=== PATIENT | male | born 1975 | race Caucasian/White ===

== ENCOUNTER → 2018-05-08 17:08 | Outpatient (CLI) | payer BC, SELFPAY ==
--- NOTE | 2018-05-08 17:14 | RAD_ITS ---
STUDY: X-RAY - CERVICAL SPINE REASON FOR EXAM: Male, 42 years old. Neck pain. TECHNIQUE: 7 view(s) of the cervical spine were obtained. COMPARISON: None FINDINGS: Normal anterior atlantoaxial articulation. Normal odontoid process. There is reversal of the normal curve, likely positional. Normal vertebral bodies and endplates. There is intervertebral disc space narrowing at C4-5, C5-6 and C6-7 with osteophyte formation most marked at C5-6. There is minimal anterior bony neural foraminal encroachment at C5-6 bilaterally. The soft tissue structures are unremarkable. RAD/Cerv Spine 4 or 5 Views IMPRESSION: Cervical spondylosis as described. Electronically Signed: Sang Up MD at 17:56 EDT , Service support ,
== END ==
PROVIDERS: Family Provider Family Medicine; PCP Family Medicine; Visit Provider Family Medicine
DX: R20.2 Paresthesia of skin (principal); R20.0 Anesthesia of skin
CPT/HCPCS: 72050

== ENCOUNTER → 2020-04-14 | Outpatient (CLI) | payer BC, SELFPAY ==
[2020-04-14 08:25] VITALS: BMI 33.0
== END | disposition home or self-care (01) ==
PROVIDERS: PCP Family Medicine; Visit Provider Physician Assistant Surgical
DX: Z20.828 Contact with and (suspected) exposure to other viral communicable diseases (principal)
CPT/HCPCS: 87635; G2023; U0003

== ENCOUNTER 2020-04-18 11:13 | Emergency (ER) | payer BC, SELFPAY ==
[2020-04-14 08:25] VITALS: BMI 33.0
[2020-04-18 11:14] VITALS: BP 161/106; PULSE 104; RESP 16; TEMP 34.4; O2SAT 95; BMI 36.9
--- NOTE | 2020-04-18 11:35 | ED.VIS.GEN ---
History of Present Illness Chief Complaint: General Illness Informant: Patient Narrative: Patient is a 44-year-old previously healthy male who presents to the emergency department for intermittent fevers, cough, headache. Initial symptoms started 1 week ago with night sweats. He states that he has been taking Tylenol, ibuprofen intermittently for his symptoms. He did go to an outside facility and had a coronavirus test. This was negative. He was also placed on azithromycin which he has 2 more pills to take. He has been having a cough which has been nonproductive. He has pain behind his eyes whenever he coughs. No pain in his forehead or over his cheeks. No sore throat. Does feel fullness in bilateral ears but no pain. He denies any chest pain or shortness of breath. No nausea/vomiting or abdominal pain. He did develop some mild diarrhea over the past 2 days. No urinary symptoms. Has not had a rash. He denies any sore throat. No known sick contacts. Patient is a smoker. Past Medical History - Allergies and Home Meds Allergies/Adverse Reactions: Allergies No Known Allergies Allergy (Unverified 04/14/20 08:25) Primary Care Physician: Meg Mahoney MD [Primary Care Provider] - Prior records reviewed: Yes Past Medical History: None Surgical History: no surgical history Smoking Status: Current every day smoker Drugs: None Review of Systems General: Reports: Chills, Fever. Denies: Sweats Eyes: Denies: Visual changes - bilaterally, Diplopia ENT: Denies: Rhinorrhea, Sore throat Cardiovascular: Denies: Chest pain, Palpitations Respiratory: Reports: Cough. Denies: Dyspnea, Dyspnea on exertion Gastrointestinal: Reports: Diarrhea. Denies: Abdominal pain, Nausea, Vomiting, Melena, Hematochezia Genitourinary: Denies: Dysuria, Hematuria, Frequency Musculoskeletal: Denies: Back pain, Extremity Pain Skin: Denies: Rash, Wounds Neurological: Reports: Headache - Mild. Denies: Weakness, Numbness Physical Exam Vital Signs/Narrative: Vital Signs Temp Pulse Resp BP Pulse Ox 04/18/20 11:14 93.9 F L 104 H 16 161/106 H 95 Inital Vital Signs reviewed: Yes General: Well nourished, Well developed, No Acute Distress Head: Normocephalic, Atraumatic Eyes: Perrl, EOMI ENT: Moist mucous membranes, No rhinorrhea, TM's clear, - - No tenderness with palpation of frontal and maxillary sinuses.. Negative for: Nasal congestion Neck: Supple, Nontender Cardiovascular: Regular rate, Regular rhythm, No murmurs Respiratory: No distress, Chest nontender, - - Mild left lower crackles. Negative for: Diminished Abdomen: Soft, Nontender, Nondistended, Normal bowel sounds Back: Nontender, Normal Inspection Extremities: Nontender, No edema Skin: Normal color, No rash Neurological: Alert, Oriented x3, Cranial nerves II-XII grossly intact, Normal Strength, Normal Sensation Psychological: Normal affect, Normal Mood Diagnostic/Tx/Re-eval Left sided consolidation. - Medical Decision Making Patient presents to the emerge department for intermittent fevers, cough, headache. Upon arrival to the emerge department he is in no acute distress. He had an outpatient coronavirus test which was negative. He is currently on azithromycin. Will obtain chest x-ray at this time. Lab work not show any significant acute abnormality. He did have very mild elevation of his liver enzymes. Lactic acid well within normal limits. We did repeat coronavirus test and is currently pending. X-ray did show a left-sided pneumonia. He is still currently on azithromycin. He is to continue this. We will also place him on Ceftin for broadening coverage. Patient did not have any desaturations while in the emergency department. He is overall well-appearing. I do feel he is a candidate for outpatient management. If he develops any worsening symptoms, shortness of breath or inability keep antibiotics down he is to return to the emergency department immediately. Otherwise he needs to have close follow-up with his PCP. Patient understands and is agreeable this plan. Will discharge home in stable condition. ED Disposition - Plan for ED Patient: Disposition: Home or Assisted Living Diagnosis: Community acquired pneumonia Instructions: Pneumonia Prescriptions: Cefuroxime Axetil [Ceftin] 500 mg PO BID 7 Days #14 tab Transmission Status: Pending to [facility] Referrals: Meg Mahoney MD [Primary Care Provider] - 2 Days
--- NOTE | 2020-04-18 11:40 | RAD_ITS ---
STUDY: X-RAY CHEST REASON FOR EXAM: Male, 44 years old. Fever, general illness x 5 days -- congestion, cough TECHNIQUE: PA and lateral views of the chest. COMPARISON: None. FINDINGS: The lungs are expanded. Right lung is clear, there is a left upper lobe infiltrate without effusion. There is no demonstrated pleural abnormality. Normal size heart. Normal mediastinum and jovana. Normal visualized pulmonary arteries. Normal visualized aortic arch and descending thoracic aorta. Normal visualized thoracic spine. Normal visualized ribs, clavicles, and shoulders. There is no demonstrated abnormality of the visualized soft tissue structures of the upper abdomen. RAD/Chest PA and Lateral IMPRESSION: Left upper lobe pneumonia without effusion. Follow-up recommended to assure resolution Electronically Signed: Kade Brar MD at 12:06 EDT , Service support ,
[2020-04-18 11:45] VITALS: TEMP 38.1
[2020-04-18 12:24] LABS: Absolute Lymphocyte Count 1.12 X10^3/uL (0.83-4.51); Absolute Neutrophil Count 5.9 X10^3/uL (2.0-7.7); Basophil# 0.08 X10^3/uL; Eosinophil# 0.11 X10^3/uL; Eosinophils% 1.3 % (0-5); Hematocrit 49.8 % (40-54); Hemoglobin 16.8 g/dL (13.0-16.5); Lymphocyte # 1.12 X10^3/ul (4.0); Lymphocyte % 13.7 % (19-41); Mean Corp Hgb Conc 33.7 g/dL (32-36); Mean Corpuscular Hgb 32.1 pg (27.0-32.0); Mean Platelet Vol. 10.9 fl (6.2-12.0); Monocyte# 0.88 X10^3/uL; Monocyte% 10.8 % (0-10); NRBC Flagged by Analyzer 0 % (0-5); Neutrophil # 5.88 X10^3/uL (2.7-7.7); Neutrophil % 71.9 % (47-70); Platelet Count 221 K/mm3 (150-450); RBC Distribution Width CV 12.8 % (11.6-14.6); RBC Distribution Width SD 45.1 fl (35.1-43.9); Red Blood Count 5.24 M/mm3 (4.6-6.2); White Blood Count 8.2 K/mm3 (4.4-11.0)
[2020-04-18 12:47] LABS: ALB/GLOB Ratio 0.5 RATIO (0.9-2.4); AST(SGOT) 75 U/L (15-37); Alanine Aminotransfer ALT/SGPT 81 U/L (16-61); Albumin, Serum 2.7 g/dL (3.2-5.0); Alkaline Phosphatase 58 U/L (45-117); Anion Gap 7 (5-15); BUN 11 mg/dL (7-18); BUN/Creat Ratio 12.5 RATIO (10-20); Calcium,Total 8.8 mg/dL (8.5-10.1); Chloride 99 mmol/L (98-107); Creatinine, Serum 0.88 mg/dL (0.70-1.30); EST Glomerular Filtration Rate 99 mL/min (>60); Est Glom Filt Rate - Afr Amer 119 mL/min (>60); Estimated Creatinine Clearance 118.54 ml/min; Glucose 109 mg/dL (74-106); Potassium 3.4 mmol/L (3.5-5.1); Protein, Total 7.7 g/dL (6.4-8.2); Sodium Level 136 mmol/L (136-145)
[2020-04-18] MEDS: Acetaminophen 325 MG Tablet 650 MG PO (12:49)
[2020-04-18 13:56] VITALS: BP 113/73; O2SAT 94
== END 2020-04-18 13:57 | disposition home or self-care (01) ==
PROVIDERS: Emergency Provider Emergency Medicine; PCP Family Medicine
DX: J18.9 Pneumonia, unspecified organism (principal); R74.8 Abnormal levels of other serum enzymes; F17.200 Nicotine dependence, unspecified, uncomplicated
CPT/HCPCS: 71046; 80053; 83605; 85025; 87635; 99285; G2023; A4216; U0003

== ENCOUNTER → 2021-04-03 16:39 | Outpatient (CLI) | payer BC, SELFPAY ==
--- NOTE | 2021-04-03 16:42 | RAD_ITS ---
STUDY: X-RAY - CERVICAL SPINE REASON FOR EXAM: Male, 45 years old. Numbness and tingling. TECHNIQUE: 5 view(s) of the cervical spine were obtained on 7 images. COMPARISON: 05/08/2018. FINDINGS: Normal anterior atlantoaxial articulation. Normal odontoid process. Normal cervical lordosis. Reversal of the normal lordotic curvature, likely positional. Diffuse uncovertebral and facet sclerosis. Intervertebral disc space narrowing at C3-4, C4-5, C5-6 and C6-7 with osteophyte formation most marked at C4-5 and C5-6. Anterior bony neural foraminal encroachment at C4-5, C5-6 and C6-7 bilaterally. The soft tissue structures are unremarkable. RAD/Cerv Spine 4 or 5 Views IMPRESSION: Stable moderate diffuse cervical spondylosis as described, most marked at C4-5 and C5-6. Electronically Signed: Sang Up MD at 9:20 EDT , Service support ,
[2021-04-03 17:55] LABS: Absolute Lymphocyte Count 3.45 X10^3/uL (0.83-4.51); Absolute Neutrophil Count 8.3 X10^3/uL (2.0-7.7); Basophil# 0.11 X10^3/uL; Basophil% 0.8 % (0-1); Eosinophil# 0.26 X10^3/uL; Hematocrit 52.6 % (40-54); Hemoglobin 17.6 g/dL (13.0-16.5); Lymphocyte # 3.45 X10^3/ul (0.83-4.51); Lymphocyte % 26.1 % (19-41); Mean Corp Hgb Conc 33.5 g/dL (32-36); Mean Corpuscular Volume 95.6 fL (80-94); Mean Platelet Vol. 10.8 fl (6.2-12.0); Monocyte# 1.04 X10^3/uL; Monocyte% 7.9 % (0-10); NRBC Flagged by Analyzer 0 % (0-5); Neutrophil # 8.26 X10^3/uL (2.7-7.7); Neutrophil % 62.5 % (47-70); Platelet Count 286 K/mm3 (150-450); RBC Distribution Width CV 12.8 % (11.6-14.6); RBC Distribution Width SD 45.3 fl (35.1-43.9); White Blood Count 13.2 K/mm3 (4.4-11.0)
[2021-04-03 18:42] LABS: ALB/GLOB Ratio 1.1 RATIO (0.9-2.4); AST(SGOT) 13 U/L (15-37); Alanine Aminotransfer ALT/SGPT 25 U/L (16-61); Albumin, Serum 4.1 g/dL (3.2-5.0); Alkaline Phosphatase 69 U/L (45-117); Anion Gap 5 (5-15); BUN 17 mg/dL (7-18); BUN/Creat Ratio 22.1 RATIO (10-20); Chloride 106 mmol/L (98-107); Creatinine, Serum 0.77 mg/dL (0.70-1.30); EST Glomerular Filtration Rate 115 mL/min (>60); Est Glom Filt Rate - Afr Amer 139 mL/min (>60); Globulin 3.6 g/dL (2.2-4.2); Glucose 86 mg/dL (74-106); Protein, Total 7.7 g/dL (6.4-8.2); Sodium Level 139 mmol/L (136-145); Thyroid Stim Hormone (TSH) 2.28 uIU/mL (0.358-3.74)
[2021-04-04 09:35] LABS: Syphilis Antibodies Non-reactive; Vitamin B12 753 pg/mL (211-911)
== END ==
PROVIDERS: PCP Family Medicine; Referring Provider Family Medicine; Visit Provider Family Medicine
DX: R20.0 Anesthesia of skin (principal); R20.2 Paresthesia of skin
CPT/HCPCS: 36415; 72050; 80053; 82607; 82746; 84443; 85025; 86780

== ENCOUNTER → 2021-04-13 07:12 | Outpatient (CLI) | payer BC, SELFPAY ==
--- NOTE | 2021-04-13 07:20 | MRI_ITS ---
STUDY: MRI BRAIN WITH AND WITHOUT CONTRAST REASON FOR EXAM: Male, 45 years old. FRONTAL HEADACHE, R SIDED NUMBNESS TECHNIQUE: Standardized multiplanar fat and water weighted pulse sequences were obtained. IV 25cc dotarem was administered for the contrast portion of the examination. COMPARISON: None. FINDINGS: Normal size of the ventricles and extra-axial spaces for the patient''s age. Normal white matter tracts of the supratentorial brain. There is no evidence for recent intracranial ischemia or other cause of cytotoxic edema on diffusion weighted imaging (DWI). Normal T2* images of the brain without demonstrated susceptibility artifact. There is no demonstrated hemosiderin stain. Normal bilateral basal ganglia. Normal thalami. There is no extra-axial fluid accumulation. Normal flow voids within the major intracranial circulation suggesting patency by spin echo criteria. Normal venous enhancement. There is no enhancing intra-axial or extra-axial abnormality. Normal sella turcica, pituitary gland, infundibular stalk, optic chiasm and hypothalamus. Normal tectal plate and pineal gland. Normal midbrain, zac and medulla. Normal cerebellum. Normal basal cisterns. Normal bilateral temporal bones. Normal bilateral internal auditory canals. No demonstrated orbital abnormality, within the constraints of a routine brain study. Mucous retention cyst in the right maxillary sinus consistent with chronic sinusitis. Normal calvarium and skull base. Normal visualized soft tissue structures. Normal visualized upper cervical spine. MRI/Brain W/WO Contrast IMPRESSION: Normal unenhanced and enhanced MRI of the brain. Electronically Signed: Manfred Allred MD at 10:14 EDT Tel , Service support ,
== END ==
PROVIDERS: PCP Family Medicine; Referring Provider Family Medicine; Visit Provider Family Medicine
DX: R51.9 Headache, unspecified (principal)
CPT/HCPCS: 70553; A9575

== ENCOUNTER → 2021-04-27 11:10 | Outpatient (CLI) | payer BC, SELFPAY ==
--- NOTE | 2021-04-27 11:11 | MRI_ITS ---
HISTORY: headache. TECHNIQUE: Routine MRI of the cervical spine was performed without and with contrast. # of images incl. paperwork: 315. IV Contrast dosage and agent: 25 mL Dotarem. COMPARISON: CT 04/03/2021. FINDINGS: VERTEBRAE: Vertebral body heights maintained. Mild degenerative endplate changes without significant bone marrow signal abnormality. ALIGNMENT: Mild reversal of the cervical lordosis without anterior or posterior subluxation. SPINAL CANAL: Multiple foci of increased T2 signal in the spinal cord without enhancement and measuring up to 1 vertebral body height in length. Reference lesions are noted at C1-2, C3, C4, and C5. No gross epidural collection or enhancing intradural extramedullary mass. SOFT TISSUES: No prevertebral fluid collection. 3 cm right suboccipital subcutaneous lipoma. Maxillary sinus polypoid mucosal thickening. INTERVERTEBRAL DISCS: C2-3, C7-T1: No significant posterior disc protrusion, central canal stenosis, or foraminal narrowing. C3-4: Mild posterior disc bulge osteophyte complex with uncovertebral and facet arthropathy resulting in mild bilateral foraminal narrowing. C4-5: Mild posterior disc bulge osteophyte complex with uncovertebral and facet arthropathy resulting in mild central canal stenosis, abutment of the ventral cord, and bilateral foraminal narrowing. C5-6: Moderate posterior disc bulge osteophyte complex with uncovertebral and facet arthropathy resulting in severe central canal stenosis, mild cord impingement, and bilateral foraminal narrowing. C6-7: Posterior disc bulge osteophyte complex with a superimposed moderate left paracentral disc protrusion resulting in moderate central canal stenosis, abutment of the ventral cord, and bilateral foraminal narrowing. MRI/Spine Cervical W/WO Contrast IMPRESSION: Multiple regions of increased T2 signal in the spinal cord without enhancement, concerning for nonacute demyelinating disease. Multilevel degenerative disc disease with spinal canal stenosis and mild cord impingement as described above. at 1221 Reported and signed by: Cierra Avelar MD Electronically Signed: Cierra Avelar MD at 12:20 EDT Tel , Service support ,
== END ==
PROVIDERS: PCP Family Medicine; Referring Provider Family Medicine; Visit Provider Family Medicine
DX: R51.9 Headache, unspecified (principal)
CPT/HCPCS: 72156; A9575

== ENCOUNTER → 2021-06-04 11:41 | Outpatient (CLI) | payer BC, SELFPAY ==
[2021-06-04 12:57] LABS: Hematocrit 50.1 % (40-54); Mean Corp Hgb Conc 33.9 g/dL (32-36); Mean Corpuscular Hgb 32.3 pg (27.0-32.0); Mean Corpuscular Volume 95.2 fL (80-94); Mean Platelet Vol. 10.4 fl (6.2-12.0); Platelet Count 244 K/mm3 (150-450); RBC Distribution Width CV 12.1 % (11.6-14.6); RBC Distribution Width SD 41.9 fl (35.1-43.9); Red Blood Count 5.26 M/mm3 (4.6-6.2); White Blood Count 8.4 K/mm3 (4.4-11.0)
[2021-06-06 18:28] LABS: Vitamin D 1,25-Dihydroxy 50.3 pg/mL (19.9-79.3)
== END ==
PROVIDERS: PCP Family Medicine; Referring Provider Psychiatry & Neurology Neurology; Visit Provider Psychiatry & Neurology Neurology
DX: G35 Multiple sclerosis (principal)
CPT/HCPCS: 36415; 82652; 85027

== ENCOUNTER 2021-07-05 10:06 | Day surgery (SDC) | payer BC, SELFPAY ==
--- NOTE | 2021-06-25 10:38 | EKG12_ITS ---
Test Reason : PREOP Blood Pressure : / mmHG Vent. Rate : 075 BPM Atrial Rate : 075 BPM P-R Int : 166 ms QRS Dur : 104 ms QT Int : 378 ms P-R-T Axes : 028 037 042 degrees QTc Int : 422 ms Normal sinus rhythm Normal ECG Confirmed by LYLY SAEED, MIKHAIL ([id number]), film editor supervisor RJ VILLANUEVA ([id number]) on 06/26/2021 7:35:01 AM Referred By: Rod Almendarez Confirmed By:MIKHAIL DESOUZA MD
[2021-06-25 12:06] LABS: Absolute Lymphocyte Count 2.66 X10^3/uL (0.83-4.51); Absolute Neutrophil Count 4.9 X10^3/uL (2.0-7.7); Basophil# 0.07 X10^3/uL; Basophil% 0.8 % (0-1); Eosinophil# 0.18 X10^3/uL; Eosinophils% 2.1 % (0-5); Hematocrit 51.7 % (40-54); Hemoglobin 17.3 g/dL (13.0-16.5); Lymphocyte # 2.66 X10^3/ul (0.83-4.51); Lymphocyte % 31.6 % (19-41); Mean Corp Hgb Conc 33.5 g/dL (32-36); Mean Corpuscular Hgb 32.2 pg (27.0-32.0); Mean Corpuscular Volume 96.3 fL (80-94); Mean Platelet Vol. 10.8 fl (6.2-12.0); Monocyte# 0.61 X10^3/uL; Monocyte% 7.2 % (0-10); NRBC Flagged by Analyzer 0 % (0-5); Neutrophil # 4.87 X10^3/uL (2.7-7.7); Neutrophil % 57.8 % (47-70); Platelet Count 253 K/mm3 (150-450); RBC Distribution Width CV 12.1 % (11.6-14.6); RBC Distribution Width SD 42.7 fl (35.1-43.9); Red Blood Count 5.37 M/mm3 (4.6-6.2); White Blood Count 8.4 K/mm3 (4.4-11.0)
[2021-06-25 12:24] LABS: Magnesium 2.1 mg/dL (1.6-2.6)
[2021-06-25 12:40] LABS: Anion Gap 8 (5-15); BUN 16 mg/dL (7-18); BUN/Creat Ratio 23.3 RATIO (10-20); Calcium,Total 8.7 mg/dL (8.5-10.1); Chloride 108 mmol/L (98-107); Creatinine, Serum 0.69 mg/dL (0.70-1.30); EST Glomerular Filtration Rate 131 mL/min (>60); Est Glom Filt Rate - Afr Amer 159 mL/min (>60); Glucose 97 mg/dL (74-106); Potassium 3.8 mmol/L (3.5-5.1); Sodium Level 141 mmol/L (136-145)
[2021-06-25 13:48] LABS: HIV - WCH Non-Reactive (Nonreactive); Hepatitis B Surface Antibody Reactive; Hepatitis C Antibody Non-Reactive (Nonreactive)
[2021-06-26 08:04] LABS: Hepatitis A AB, Total Negative (Negative)
--- NOTE | 2021-07-04 15:26 | PCM.HP.BLA ---
History and Physical Date of Admission: 07/05/21 [facility] [id number] [phone] OFFICE VISITDate of Service: 06/27/21 MR#:[id number]:[id number]: BLAIRE LIGHT #:[id number]:[id number] Provider:Dr. Rod Almendarez, DOAge/Sex: 45/M Location:[place]:Signed Intake Intake Visit Reasons: cervical spine Allergies No Known Allergies Allergy (Verified 06/27/21 09:05) Medications ibuprofen 800 mg tablet 800 mg PO Q8H PRN #20 tab 04/14/20 [Rx Confirmed 06/27/21] cholecalciferol (vitamin D3) 50 mcg (2,000 unit) capsule 50 mcg PO DAILY 05/11/21 [History Confirmed 06/27/21] duloxetine 60 mg capsule,delayed release 60 mg PO DAILY cap 05/11/21 [History Confirmed 06/27/21] buspirone 5 mg tablet 5 mg PO BID #60 tab 06/25/21 [Rx Confirmed 06/27/21] PFSH Medical History (Updated 06/25/21 @ 21:[address] Lee Yancey MD) Anxiety Arthritis Cervical radicular pain Cervicalgia Chest pain Coccydynia DAILY [facility] (erectile dysfunction) Fatigue Former smoker MICHAELA (generalized anxiety disorder) Headache Migraine headache Multiple sclerosis Numbness and tingling Oral aphthae Otitis externa Shortness of breath Shortness of breath on exertion Sinusitis Tobacco use disorder Uvulitis Wears glasses Wears partial dentures Surgical History Hx of tonsillectomy S/P ACL reconstruction Family History Grandfather Alcoholism Arthritis Daughter Epilepsy Leukemia Social History Smoking Status: Former smoker Electronic Cigarette Use: not used second hand exposure: No alcohol intake: current alcohol intake frequency: a few times a month substance use type: does not use HPI cervical spine Details: Parts of this documentation were recorded by a scribe, this documentation accurately reflects the service provided and the decisions made by me, Dr. Rod Almendarez, DO 06/27/21 0901. BLAIRE LIGHT is a 45 year old M here today for his pre-op appt. DOS: 07/05/21. Patient states approx two weeks ago, patient was diagnosed with MS. Patient voiced his MS will be getting treated after his sx. Sourav is here for his preop. MS was diagnosed recently and he will seek treatment after his surgery. He plans on being off work for 6 months. This is because his job requires lifting and loading etc. We spoke of possible risks and complications associated with the surgery including the possibility of , coma, paralysis, blood clot in the legs, blood clot in the lungs, myocardial infarction, permanent hoarseness, permanent difficulty swallowing, permanent loss of voice volume, Gloria syndrome, infection among others. I answered all his questions he voluntarily signed the operative permit. We will see Sourav again at surgery next week. On a good note, he plans on being done with smoking altogether by the end of this week. Coding Level of Care Code Off vis,est,level 2 Diagnoses Cervical spinal stenosis M48.02 Myelomalacia of cervical cord G95.89 Time Spent (min) 25 Assessment and Plan Assessment and Plan (1) Cervical spinal stenosis: Status: Acute (2) Myelomalacia of cervical cord:
[2021-07-05] VITALS (11 sets, daily range): BP systolic 144–172; BP diastolic 74–106; PULSE 82–104; RESP 16–20; TEMP 36.4–37.1; O2SAT 92–96; BMI 36.0
--- NOTE | 2021-07-05 | DISC_PTH ---
PATIENT: BLAIRE LIGHT LOC: [facility] U#:[id number] AGE/SX: 45/M ROOM: RE07/05/[address]: Dr. Rod Almendarez DO : 1975 BED: DIS: 07/05/2021 SPEC #: [id number] RECD: 07/06/21 07:47 STATUS: JOHAN REDaniela #: [id number] CLARA: 07/05/21 00:[address]: Rod Almendarez DEPT: SURGICAL PATHOLOGY RECD BY: Tato Stephen ENTERED: 07/06/21 12:39 SP TYPE: DISC OTHR DR: Dr. Meg Mahoney MD Tissues: Intervertebral disc, NOS Procedures: Surgery Specimen Level III HEADER OPERATION: ERAS, anterior cervical fusion C4-C5, C5-C6 PRE-OP DIAGNOSIS: Cervical spine stenosis, myelomalacia of cervical cord TISSUE SUBMITTED: Cervical disc C4-C5, C5-C6 MICROSCOPIC DIAGNOSIS Cervical disc C4-C5, C5-C6: Fragments of fibrocartilaginous tissue with degenerative changes and bone. EVENS:susan 07/09/2021 MICROSCOPIC DESCRIPTION Slides are reviewed. GROSS DESCRIPTION Received in fixative is one container labeled with the patient's name and designated cervical disc C4-C5 and C5-C6. The specimen consists of multiple pieces of jean, indurated tissue that in aggregate measure 4 x 3 x 0.5 cm. The specimen is totally submitted in two cassettes. / EVENS:susan 07/06/21 TC:5 CPT: 17939
[2021-07-05] MEDS: dexAMETHasone 10 MG/ML Vial 8 MG IV (10:58)
[2021-07-05] MEDS: Lactated Ringers 1,000 ML 100 ML IV (10:58)
[2021-07-05] MEDS: Acetaminophen 500 MG Tablet 1000 MG PO (11:03)
[2021-07-05 11:15] LABS: Bedside Glucose 98 mg/dL (70-110)
[2021-07-05] MEDS: Heparin 10,000 UNITS/10 ML Vial 10000 UNITS (15:00)
[2021-07-05] MEDS: Cefazolin 2 GM in 0.9% Normal Saline 100 ML IV (15:01)
[2021-07-05] MEDS: THROMBIN (RECOMBINANT) 20,000 UNIT VIAL 20000 UNIT TOPICAL (15:30)
--- NOTE | 2021-07-05 16:15 | RAD_ITS ---
STUDY: X-RAY - CERVICAL SPINE REASON FOR EXAM: Male, 45 years old. ANTERIOR CERVICALE FUSION TECHNIQUE: 1 view(s) of the cervical spine were obtained. COMPARISON: None FINDINGS: Intraoperative imaging provided. Operative marking device is seen along the anterior C5-C6 disc space level. RAD/Spine 1 View Any Level IMPRESSION: Localization device is seen on the anterior aspect of the C5-C6 disc space level. Electronically Signed: Efrain Diaz MD at 15:42 EDT , Service support ,
--- NOTE | 2021-07-05 16:25 | RAD_ITS ---
STUDY: X-RAY - CERVICAL SPINE REASON FOR EXAM: Male, 45 years old. C4-C6 ANTERIOR FUSION TECHNIQUE: 1 view(s) of the cervical spine were obtained. COMPARISON: None FINDINGS: Intraoperative imaging for localization. The localization instrument is along the anterior aspect of the C5-C6 disc space level. RAD/Spine 1 View Any Level IMPRESSION: Localization instrument is seen anterior to the C5-C6 disc space level. Electronically Signed: Efrain Diaz MD at 15:41 EDT , Service support ,
--- NOTE | 2021-07-05 18:30 | RAD_ITS ---
HISTORY: ANTERIOR CERVICAL FUSION EXAMINATION/TECHNIQUE: XR Spine Cervical 1 View: Single lateral view cervical spine COMPARISON: Lateral view cervical spine from 2 hours prior FINDINGS: In the interval, patient is status post C4-C6 anterior cervical fusion and discectomy. Hardware appears adequately positioned on this single view. Adequate alignment of cervical spine. Postsurgical prevertebral soft tissue thickening noted. ET tube in place. Poorly visualized cervicothoracic junction. RAD/Spine 1 View Any Level IMPRESSION: Status post C4-C6 ACDF. at 0747 Reported and signed by: Leoncio Mauro MD Electronically Signed: Leoncio Mauro MD at 7:46 EDT Tel , Service support ,
--- NOTE | 2021-07-05 19:00 | PCM.OPRPT ---
Report of Operation Date of Procedure: 07/05/21 Description of Surgical Findings:: Preoperative diagnosis: Spinal stenosis C4-5 and C5-6 Postoperative diagnosis: The same Procedure: #1 anterior cervical fusion C5-6 CPT code 10048 #2 application of spine plate from C4-C6 CPT code 60489/59 #3 anterior cervical fusion C4-5 CPT code 81357/51 #4 insertion of cage C5-6 CPT code 09805 #5 insertion of cage C4-5 CPT code 11038/51 Surgeon: Dr. Almendarez speech language pathology assistant: Anupam TATE Anesthesia: General endotracheal anesthesia administered by [facility] Estimated blood loss: Less than 30 cc Drains: 1/4 inch Dinh Complications: None Procedure: Patient was taken to the OR where he was placed in the supine position on the operating table he was then placed under general endotracheal anesthesia a Franco catheter was inserted. Neuro monitoring placed their leads and the patient. The right iliac crest and the neck were prepped and draped in standard fashion. Obtained the BMA first punching a hole over the ASIS on the right and inserting a Jamshidi needle. 60 cc of bone marrow aspirate were obtained but were handed off to the tablet technician who use a centrifuge to collect the stem cells only and concentrate them 8-10 times. These were then given back to us. In the interim I made an incision starting the midline note that this was predetermined with a preoperative x-ray. I started that incision at that point incurvate to the edge of the right sternocleidomastoid muscle with some including the subcutaneous tissues down to the platysma. I then undermined the platysma above and below the incision split the platysma longitudinally in line with its fibers. Then developed the of planes by first exploiting the precervical fascia followed by the exploitation of the pretracheal fascia in that fashion I was able to retract the midline structures that is the trachea and esophagus to the left and the carotid sheath to the right. Using Cloward retractors I was able to of find what we thought was C5-6 a needle marker was put in place and an intraoperative x-ray was taken. This confirmed the proper level at C5-6. I then used cautery to cauterize the edge of the coli muscles on either side elevated them gently off the space put the cervical retractors in place under the coli muscles. We also put retractors in place up-and-down likewise. This gave me good access to the C5-6 anterior disc. Note that it was marked after we remove the needle of course. Note it was calcified anteriorly using double-action rongeurs and a bur I remove the anterior spurs. I then used a 15 blade to cut the annulus anteriorly and used a pituitary rongeurs to remove the disc material. A distractor was put on 1 side first on the right and I removed cartilage off the endplates all the way down to the large uncinate process on the left side. Using the elizabeth bur I was able to bur the process down using a technique whereby we would bur used followed by the instillation of cold saline this was done repeatedly until the uncinate process right on the base of the nerve was a very thin shell. I then removed the shell with a small curette in 4 and 3 mm sizes. This completely decompressed the base of the C6 nerve root on the left. We then put the right distractor on the opposite side and again on the right side removed all the cartilage off the endplates and use the elizabeth bur to bur the uncinate process on the right. Once the thin shell I was able to remove it with again small angled curettes. This completely decompressed the right C6 nerve root. Using the elizabeth bur I then flatten the sides of the lower of the 2 vertebra and burred the backside to better fit a titanium cage. We took her measurements for the cage with a trial. We decided on an 8 mm cage we used an 8 mm broach to broach the space repeatedly until we had good bleeding endplate bone. I then filled the center of the cage with spongy DBM soaked in the patient's concentrated stem cells. This was then inserted and tamped into place. Note that it was countersunk a couple of millimeters. We then moved our instrumentation up to the next level at C4-5. Again cautery was used to cauterize the coli muscles on either side and elevated them gently off the disc base with an elevator. Rotation was moved cephalad to give us good access to the C4-5 space. Again it was covered with the largest bur I removed it with a bur and then remove the anterior annulus with a 15 blade and again removed more nucleus from in the disc base with the pituitary rongeurs. Once I had the cartilage removed all the way back to the posterior longitudinal ligament or at least near it is the bur again to sculpt the back and the sides of C5. This would be to better fit a cage. Again a trial was used and we ended up with a 7 mm large size cage on the at this level. Again it was filled with DBM soaked in patient's stem cells and once the space was broached we tamped into place and countersunk it a couple of millimeters. We then used a 45 mm anterior plate I did have to bend it slightly to fit perfectly from a C4 C5-C6. Once in place we used a pin to lock it on 1 side and used an awl to punch the hole into C5 at the appropriate angle we then entered with a 14 mm screw. We then removed the pin on the opposite side and also put a 14 Baker screw there meaning 4 screws were put in after first using the awl to punch the man at the appropriate angles and's screw in them down and walking them down through the a built-in mechanism of this particular plate. An intraoperative x-ray was taken that demonstrate good position of the cages the plate and the screws. An amniotic graft was then placed over the entire case to prevent adhesions to the surrounding soft tissues of 1/4 inch Dinh drain was inserted and closure was begun. We closed the cervical platysma with a running 5-0 Vicryl stitch note that we did leave 1/[address] Closed subcutaneous tissues in interrupted fashion with 5-0 Vicryl. This approximated the skin and there was no need for other stitches. Sterile dressings were applied a safety pin was placed to the drain to prevent a suction into the wound. Patient is was then recovered in the OR and taken to recovery on a stretcher in satisfactory condition. This is the end of operative summary on Saulo Wong. This is Dr. Almendarez dictating.
--- NOTE | 2021-07-05 19:17 | EX.PCM.DISCH ---
Discharge Instructions Diet Discharge Diet: Soft diet Activity Discharge Activity: May Not Drive May shower in (days): 5 May resume sexual activity in: 4-6 weeks Weight Bearing Status: Full weight bearing Dressing / Incision Change Dressing in: do not change dressing Cleanse incision/area with: Soap & Water Follow Up Care Please Follow Up With: Dr Almendarez When: tomorrow Test Results: Test results from this visit will be discussed in further detail at your follow-up appointment, if applicable. Discharge Plan Admission Attending Provider: Rod Almendarez Primary Care Provider: Meg Mahoney Discharge Orders/Prescriptions Prescriptions: No Action ibuprofen 800 mg tablet 800 mg PO Q8H PRN (Reason: pain) Qty: 20 RF: 0 duloxetine [Cymbalta] 60 mg capsule,delayed release(DR/EC) 60 mg PO DAILY RF: 0 cholecalciferol (vitamin D3) 50 mcg (2,000 unit) capsule 50 mcg PO DAILY RF: 0 buspirone 5 mg tablet 5 mg PO BID Qty: 60 RF: 2 methylprednisolone [Medrol] 8 mg tablet 8 mg PO Q6H Qty: 4 RF: 0 hydrocodone-acetaminophen 10-325 mg tablet 1 tab PO Q6H PRN (Reason: pain) 8 Days Qty: 30 RF: 0 hydrocodone-acetaminophen 10-325 mg tablet 1 tab PO Q6H PRN (Reason: pain) 8 Days Qty: 30 RF: 0 cephalexin 500 mg capsule 500 mg PO Q6H Qty: 4 RF: 0 Referrals / Follow Up: Meg Mahoney MD [Primary Care Provider] - Disposition Disposition (needs filled in before D/C Order can be placed): Home, Self Care
[2021-07-05] MEDS: dexAMETHasone 4 MG/ML Vial IV (19:43)
[2021-07-05] MEDS: Cefazolin 1 GM/50 ML BAG IV (20:34)
[2021-07-05] MEDS: oxyCODONE 5 MG Tablet PO ×2 (21:02→21:55)
== END 2021-07-05 22:21 | disposition home or self-care (01) ==
LOC: SDC 10:06 → AC 14:07
PROVIDERS: Anesthesiology; PCP Family Medicine; Referring Provider Orthopaedic Surgery; Visit Provider Orthopaedic Surgery
PROC: (CPT 22551; principal; 2021-07-05 12:00)
DX: M48.02 Spinal stenosis, cervical region (principal); G35 Multiple sclerosis; G95.89 Other specified diseases of spinal cord; F41.9 Anxiety disorder, unspecified; M19.90 Unspecified osteoarthritis, unspecified site; Z79.899 Other long term (current) drug therapy; Z87.891 Personal history of nicotine dependence
CPT/HCPCS: 00670; 22551; 22552; 22845; 22853 ×2; 36415; 72020; 80048; 82962; 83735; 85025; 86703; 86706; 86708; 86803; 87081; 88304; 93005; C1713; J7120; J2405

== ENCOUNTER → 2021-09-25 09:22 | Outpatient (CLI) | payer BC, SELFPAY ==
[2021-09-25 12:04] LABS: Absolute Lymphocyte Count 2.42 X10^3/uL (0.83-4.51); Absolute Neutrophil Count 4.2 X10^3/uL (2.0-7.7); Basophil# 0.09 X10^3/uL; Basophil% 1.2 % (0-1); Eosinophils% 2.6 % (0-5); Hemoglobin 16.8 g/dL (13.0-16.5); Lymphocyte # 2.42 X10^3/ul (0.83-4.51); Lymphocyte % 31.8 % (19-41); Mean Corp Hgb Conc 32.9 g/dL (32-36); Mean Corpuscular Hgb 32.1 pg (27.0-32.0); Mean Corpuscular Volume 97.3 fL (80-94); Mean Platelet Vol. 11.1 fl (6.2-12.0); Monocyte# 0.67 X10^3/uL; Monocyte% 8.8 % (0-10); NRBC Flagged by Analyzer 0 % (0-5); Neutrophil # 4.19 X10^3/uL (2.7-7.7); Neutrophil % 55.1 % (47-70); Platelet Count 266 K/mm3 (150-450); RBC Distribution Width CV 12.6 % (11.6-14.6); RBC Distribution Width SD 45.3 fl (35.1-43.9); Red Blood Count 5.24 M/mm3 (4.6-6.2); White Blood Count 7.6 K/mm3 (4.4-11.0)
[2021-09-25 12:36] LABS: ALB/GLOB Ratio 1.2 RATIO (0.9-2.4); AST(SGOT) 10 U/L (15-37); Alanine Aminotransfer ALT/SGPT 24 U/L (16-61); Albumin, Serum 3.9 g/dL (3.2-5.0); Alkaline Phosphatase 61 U/L (45-117); Anion Gap 7 (5-15); BUN 12 mg/dL (7-18); BUN/Creat Ratio 19.6 RATIO (10-20); Calcium,Total 8.7 mg/dL (8.5-10.1); Chloride 108 mmol/L (98-107); Creatinine, Serum 0.61 mg/dL (0.70-1.30); EST Glomerular Filtration Rate 149 mL/min (>60); Est Glom Filt Rate - Afr Amer 181 mL/min (>60); Globulin 3.3 g/dL (2.2-4.2); Glucose 96 mg/dL (74-106); Potassium 3.7 mmol/L (3.5-5.1); Protein, Total 7.2 g/dL (6.4-8.2); Sodium Level 141 mmol/L (136-145)
== END ==
PROVIDERS: PCP Family Medicine; Referring Provider Psychiatry & Neurology Neurology; Visit Provider Psychiatry & Neurology Neurology
DX: G35 Multiple sclerosis (principal)
CPT/HCPCS: 36415; 80053; 85025

== ENCOUNTER → 2021-09-25 13:49 | Outpatient (CLI) | payer BC, SELFPAY ==
[2021-09-25 14:00] VITALS: BP 157/94; PULSE 88; RESP 18; TEMP 36.6; O2SAT 95
[2021-09-25] MEDS: 0.9% NaCl IVPB Med Flush (250 mL) 15 ML IV (14:20)
[2021-09-25] MEDS: 0.9% NaCl Peripheral Flush Adult/Peds IV (14:20)
[2021-09-25 16:03] VITALS: BP 145/90; PULSE 81; RESP 16; TEMP 36.7
== END ==
PROVIDERS: PCP Family Medicine; Referring Provider Psychiatry & Neurology Neurology; Visit Provider Psychiatry & Neurology Neurology
DX: G35 Multiple sclerosis (principal)
CPT/HCPCS: 96365; 96366; J7050; A4216; J2930

== ENCOUNTER → 2021-09-26 14:17 | Outpatient (CLI) | payer BC, SELFPAY ==
[2021-09-26 14:40] VITALS: BP 136/82; PULSE 89; RESP 16; TEMP 37.1; O2SAT 92; BMI 34.9
[2021-09-26] MEDS: 0.9% NaCl IVPB Med Flush (250 mL) 15 ML IV (14:50)
[2021-09-26] MEDS: 0.9% NaCl Peripheral Flush Adult/Peds IV (14:51)
[2021-09-26 16:35] VITALS: BP 154/86; PULSE 86; RESP 16; O2SAT 96
== END ==
PROVIDERS: PCP Family Medicine; Referring Provider Psychiatry & Neurology Neurology; Visit Provider Psychiatry & Neurology Neurology
DX: G35 Multiple sclerosis (principal)
CPT/HCPCS: 96365; J7050; A4216; J2930

== ENCOUNTER → 2021-09-27 14:01 | Outpatient (CLI) | payer BC, SELFPAY ==
[2021-09-27 14:16] VITALS: BP 155/79; PULSE 83; RESP 16; TEMP 36.1; O2SAT 94
[2021-09-27] MEDS: 0.9% NaCl Peripheral Flush Adult/Peds IV (14:18)
[2021-09-27] MEDS: 0.9% NaCl IVPB Med Flush (250 mL) 15 ML IV (14:30)
[2021-09-27 16:12] VITALS: BP 165/77; PULSE 74; RESP 16; TEMP 36.1; O2SAT 94
== END ==
PROVIDERS: PCP Family Medicine; Referring Provider Psychiatry & Neurology Neurology; Visit Provider Psychiatry & Neurology Neurology
DX: G35 Multiple sclerosis (principal)
CPT/HCPCS: 96365; 96366; J7050; A4216; J2930

== ENCOUNTER 2021-10-19 17:01 | Outpatient (CLI) | payer BC, SELFPAY ==
--- NOTE | 2021-10-19 17:50 | MRI_ITS ---
STUDY: MRI BRAIN WITH AND WITHOUT CONTRAST REASON FOR EXAM: Male, 46 years old. Multiple Sclerosis TECHNIQUE: Standardized multiplanar fat and water weighted pulse sequences were obtained. IV 24ml Dotarem was administered for the contrast portion of the examination. COMPARISON: 04/13/2021 FINDINGS: Normal size of the ventricles and extra-axial spaces for the patient''s age. There are a limited number of small nonspecific white matter hyperintensities, distributed in the subcortical and deep white matter tracts of the cerebral hemispheres are stable in size and number since the previous study and demonstrate no abnormal enhancement after contrast administration. Normal bilateral basal ganglia. Normal thalami. There is no extra-axial fluid accumulation. Normal flow voids within the major intracranial circulation suggesting patency by spin echo criteria. Normal venous enhancement. There is no enhancing intra-axial or extra-axial abnormality. Normal sella turcica, pituitary gland, infundibular stalk, optic chiasm and hypothalamus. Normal tectal plate and pineal gland. Normal midbrain, zac and medulla. Normal cerebellum. Normal basal cisterns. Normal bilateral temporal bones. Normal bilateral internal auditory canals. No demonstrated orbital abnormality, within the constraints of a routine brain study. Mucosal retention cyst in the right maxillary sinus measures 2.5 cm. Normal calvarium and skull base. Normal visualized soft tissue structures. Normal visualized upper cervical spine. MRI/Brain W/WO Contrast IMPRESSION: Stable several small nonspecific white matter hyperintensities, distributed in the subcortical and deep white matter tracts of the cerebral hemispheres. Electronically Signed: Danish Mondragon MD at 5:06 EST Tel , Service support ,
--- NOTE | 2021-10-19 18:25 | MRI_ITS ---
STUDY: MRI CERVICAL SPINE WITH AND WITHOUT CONTRAST REASON FOR EXAM: Male, 46 years old. Multiple Sclerosis TECHNIQUE: Standardized fat and water weighted pulse sequences were obtained in the sagittal and axial following administration of IV 24ml Dotarem. COMPARISON: 04/27/2021 FINDINGS: Normal foramen magnum and brainstem-cervical cord junction. Normal craniovertebral junction. Normal anterior atlantoaxial articulation. Normal odontoid process. There is straightening of the normal cervical lordosis. Normal vertebral bodies and posterior osseous elements. C2-3: Normal endplates. Normal disc height, signal and morphology. Normal central canal and intervertebral neural foramina. C3-4: Normal endplates. Normal disc height, signal and morphology. Normal central canal and intervertebral neural foramina. C4-5, C5-6: Postsurgical changes from anterior fusion. There is no significant stenosis of the central canal and intervertebral neural foramina. C6-7: Endplate spondylosis. Central and paracentral disc bulge. Degenerative changes of the bilateral facet joints and uncovertebral joints. Mild narrowing of the central canal and moderate narrowing of the bilateral intervertebral neural foramina. C7-T1: Normal endplates. Normal disc height, signal and morphology. Normal central canal and intervertebral neural foramina. Hyperintense lesions are noted in the spinal cord on T2-weighted images at C1, C3, C4, C5-6 levels are stable in size and number since the previous study and demonstrate no abnormal enhancement after contrast administration. Normal visualized soft tissue structures. MRI/Spine Cervical W/WO Contrast IMPRESSION: Stable lesions in the spinal cord as described above are consistent with demyelinating disease, there has been no significant change since the previous study. Electronically Signed: Danish Mondragon MD at 5:31 EST Tel , Service support ,
== END 2021-10-19 23:59 | disposition short-term general hospital (02) ==
PROVIDERS: PCP Family Medicine; Referring Provider Psychiatry & Neurology Neurology; Visit Provider Psychiatry & Neurology Neurology
DX: G35 Multiple sclerosis (principal)
CPT/HCPCS: 70553; 72156; A9575

== ENCOUNTER → 2022-03-12 | Outpatient (CLI) | payer BC, SELFPAY ==
[2022-03-12 10:25] LABS: Absolute Lymphocyte Count 2.79 X10^3/uL (0.83-4.51); Absolute Neutrophil Count 5.1 X10^3/uL (2.0-7.7); Basophil# 0.09 X10^3/uL; Eosinophil# 0.24 X10^3/uL; Eosinophils% 2.6 % (0-5); Hematocrit 50.3 % (40-54); Hemoglobin 16.9 g/dL (13.0-16.5); Lymphocyte # 2.79 X10^3/ul (0.83-4.51); Lymphocyte % 30.5 % (19-41); Mean Corp Hgb Conc 33.6 g/dL (32-36); Mean Corpuscular Hgb 32.6 pg (27.0-32.0); Mean Corpuscular Volume 96.9 fL (80-94); Mean Platelet Vol. 11.1 fl (6.2-12.0); Monocyte# 0.85 X10^3/uL; Monocyte% 9.3 % (0-10); NRBC Flagged by Analyzer 0 % (0-5); Neutrophil # 5.12 X10^3/uL (2.7-7.7); Neutrophil % 55.8 % (47-70); Platelet Count 248 K/mm3 (150-450); RBC Distribution Width CV 12.2 % (11.6-14.6); RBC Distribution Width SD 43.8 fl (35.1-43.9); Red Blood Count 5.19 M/mm3 (4.6-6.2); White Blood Count 9.2 K/mm3 (4.4-11.0)
[2022-03-12 10:41] LABS: ALB/GLOB Ratio 1.3 RATIO (0.9-2.4); AST(SGOT) 16 U/L (15-37); Alanine Aminotransfer ALT/SGPT 25 U/L (16-61); Albumin, Serum 3.9 g/dL (3.2-5.0); Alkaline Phosphatase 51 U/L (45-117); Anion Gap 5 (5-15); BUN 16 mg/dL (7-18); BUN/Creat Ratio 23.1 RATIO (10-20); Calcium,Total 8.6 mg/dL (8.5-10.1); Chloride 110 mmol/L (98-107); Creatinine, Serum 0.69 mg/dL (0.70-1.30); EST Glomerular Filtration Rate 129 mL/min (>60); Est Glom Filt Rate - Afr Amer 157 mL/min (>60); Globulin 3.1 g/dL (2.2-4.2); Glucose 98 mg/dL (74-106); Sodium Level 140 mmol/L (136-145)
== END | disposition home or self-care (01) ==
LOC: MTLAB 08:33
PROVIDERS: PCP Family Medicine; Referring Provider Psychiatry & Neurology Neurology; Visit Provider Psychiatry & Neurology Neurology
DX: G35 Multiple sclerosis (principal)
CPT/HCPCS: 36415; 80053; 85025

== ENCOUNTER → 2022-03-20 | Outpatient (CLI) | payer BC, SELFPAY | END | disposition home or self-care (01) | LOC: SL 10:47 | PROVIDERS: PCP Family Medicine; Referring Provider Nurse Practitioner Acute Care; Visit Provider Nurse Practitioner Acute Care | DX: G47.10 Hypersomnia, unspecified (principal) | CPT/HCPCS: 95806 ==

== ENCOUNTER → 2022-06-14 | Outpatient (CLI) | payer OTHER, SELFPAY | END | disposition home or self-care (01) | LOC: SL 20:10 | PROVIDERS: PCP Family Medicine; Referring Provider Nurse Practitioner Acute Care; Visit Provider Nurse Practitioner Acute Care | DX: G47.10 Hypersomnia, unspecified (principal) | CPT/HCPCS: 95811 ==

== ENCOUNTER → 2022-09-28 | Outpatient (CLI) | payer OTHER, SELFPAY ==
[2022-09-28 12:41] LABS: Absolute Lymphocyte Count 2.28 X10^3/uL (0.83-4.51); Absolute Neutrophil Count 4.6 X10^3/uL (2.0-7.7); Basophil# 0.06 X10^3/uL; Basophil% 0.8 % (0-1); Eosinophil# 0.26 X10^3/uL; Eosinophils% 3.3 % (0-5); Hematocrit 46.7 % (40-54); Hemoglobin 16.3 g/dL (13.0-16.5); Lymphocyte # 2.28 X10^3/ul (0.83-4.51); Lymphocyte % 28.6 % (19-41); Mean Corp Hgb Conc 34.9 g/dL (32-36); Mean Corpuscular Hgb 33.3 pg (27.0-32.0); Mean Corpuscular Volume 95.5 fL (80-94); Mean Platelet Vol. 10.5 fl (6.2-12.0); Monocyte# 0.71 X10^3/uL; Monocyte% 8.9 % (0-10); NRBC Flagged by Analyzer 0 % (0-5); Neutrophil # 4.64 X10^3/uL (2.7-7.7); Platelet Count 231 K/mm3 (150-450); RBC Distribution Width CV 12.5 % (11.6-14.6); RBC Distribution Width SD 43.8 fl (35.1-43.9); Red Blood Count 4.89 M/mm3 (4.6-6.2)
[2022-09-28 12:42] LABS: ALB/GLOB Ratio 1.2 RATIO (0.9-2.4); AST(SGOT) 10 U/L (15-37); Alanine Aminotransfer ALT/SGPT 22 U/L (16-61); Albumin, Serum 3.7 g/dL (3.2-5.0); Alkaline Phosphatase 49 U/L (45-117); Anion Gap 5 (5-15); BUN 16 mg/dL (7-18); BUN/Creat Ratio 23.3 RATIO (10-20); Calcium,Total 8.4 mg/dL (8.5-10.1); Chloride 109 mmol/L (98-107); Creatinine, Serum 0.69 mg/dL (0.70-1.30); EST Glomerular Filtration Rate 130 mL/min (>60); Est Glom Filt Rate - Afr Amer 158 mL/min (>60); Globulin 3.1 g/dL (2.2-4.2); Glucose 89 mg/dL (74-106); Potassium 3.7 mmol/L (3.5-5.1); Protein, Total 6.8 g/dL (6.4-8.2); Sodium Level 140 mmol/L (136-145)
[2022-10-02 13:34] LABS: Vitamin D 1,25-Dihydroxy 47.5 pg/mL (24.8-81.5)
== END | disposition home or self-care (01) ==
LOC: LAB 09:55
PROVIDERS: PCP Family Medicine; Visit Provider Psychiatry & Neurology Neurology
DX: G35 Multiple sclerosis (principal)
CPT/HCPCS: 36415; 80053; 82652; 85025

== ENCOUNTER → 2022-10-25 | Outpatient (CLI) | payer OTHER, SELFPAY ==
--- NOTE | 2022-10-25 15:34 | MRI_ITS ---
INDICATION: Multiple sclerosis follow-up EXAMINATION: MRI - MR Brain WO/W Contrast TECHNIQUE: Multiplanar and multisequence MR images of the brain were obtained without and with gadolinium. IV Contrast Dosage and Agent: None. COMPARISON: 10/19/2021, 04/13/2021. Joint FINDINGS: BRAIN AND EXTRA-AXIAL SPACES: No intracranial mass, mass effect, or midline shift. No enhancing lesion. No hemorrhage, territorial infarct or acute ischemia. Limited number of T2 hyperintense foci in the subcortical and deep white matter. Several lesions are oriented perpendicular to the ventricles, suggestive of demyelination. No enhancement. No change compared to the prior study. Lesions are slightly more conspicuous than 2020, but without significant change. Basal cisterns are unremarkable. SELLA: Pituitary gland is normal in height. AUDITORY SYSTEM: Unremarkable. BONES/JOINTS: Unremarkable. SINUSES: Mucosal thickening in the right maxillary sinus. MASTOID AIR CELLS: Unremarkable as visualized. Clear. ORBITS: Unremarkable as visualized. VASCULATURE: Normal flow voids in the major intracranial circulation. MRI/Brain W/WO Contrast IMPRESSION: Several foci of demyelination are stable compared to 2021. Electronically Signed: Alice Bone MD at 23:39 EST Reading Location ID and State: [id number] / Tel , Service support ,
--- NOTE | 2022-10-25 15:34 | MRI_ITS ---
EXAM: MR CERVICAL SPINE WITHOUT AND WITH INTRAVENOUS CONTRAST CLINICAL INDICATION: Multiple sclerosis follow-up; s/p c-spine surgery TECHNIQUE: Multiplanar and multisequence MR images of the cervical spine without and with intravenous contrast were performed. This report was created using [employer] report generation technology. CONTRAST: IV 25cc clariscan COMPARISON: 10/19/2021. FINDINGS: Quality: Limited due to patient motion. VERTEBRAE: Unremarkable. Normal vertebral bodies and posterior elements. Normal alignment. Normal craniocervical junction and cervicothoracic junction. No spondylolisthesis. There is preservation of the normal cervical lordosis. SPINAL CORD: Evaluation limited due to patient motion. Cord edema at the C4 level, without significant change from the prior study. No demonstrated enhancement. SOFT TISSUES: Unremarkable. No prevertebral soft tissue swelling. LYMPH NODES: Unremarkable. There is no cervical adenopathy. DISCS/SPINAL CANAL/NEURAL FORAMINA: C2-3: Normal disc height and morphology. Normal central canal. Foramina are patent. C3-4: Normal disc height and morphology. Normal central canal. Foraminal stenosis due to uncinate hypertrophy. C4-5: Prior anterior cervical discectomy and fusion. Spondylotic bar causing mild cord flattening and mild canal stenosis. Severe foraminal stenosis. C5-6: Prior anterior cervical discectomy and fusion. Spondylotic bar causing effacement of the left ventral subarachnoid space and mild canal stenosis. Severe foraminal stenosis due to uncinate hypertrophy. C6-7: Disc space narrowing. Mild spondylotic bar causing mild cord flattening and mild canal stenosis. Mild foraminal encroachment due to uncinate hypertrophy. C7-T1: Normal disc height and morphology. Normal central canal. Foramina are patent. No enhancing lesion. MRI/Spine Cervical W/WO Contrast IMPRESSION: Limited due to patient motion. Mild cord signal abnormality at C4, limited evaluation due to motion. Mild cord flattening and canal stenosis due to spondylosis at C4-5 through C6-7. Severe foraminal stenosis at C4-5 and C6-7. Electronically Signed: Alice Bone MD at 22:44 EST Reading Location ID and State: [id number] / Tel , Service support ,
== END | disposition home or self-care (01) ==
PROVIDERS: PCP Family Medicine; Visit Provider Psychiatry & Neurology Neurology
DX: G35 Multiple sclerosis (principal); G95.19 Other vascular myelopathies; M48.02 Spinal stenosis, cervical region; M47.812 Spondylosis without myelopathy or radiculopathy, cervical region; M50.323 Other cervical disc degeneration at C6-C7 level
CPT/HCPCS: 70553; 72156

== ENCOUNTER → 2023-02-28 | Outpatient (CLI) | payer OTHER, SELFPAY | END | disposition home or self-care (01) | LOC: MTLAB 17:07 | PROVIDERS: PCP Family Medicine; Referring Provider Family Medicine; Visit Provider Family Medicine | DX: Z12.5 Encounter for screening for malignant neoplasm of prostate (principal) | CPT/HCPCS: 36415; 84153; G0103 ==

== ENCOUNTER → 2023-10-24 | Outpatient (CLI) | payer OTHER, SELFPAY ==
--- NOTE | 2023-10-24 16:51 | CT_ITS ---
STUDY: LOW DOSE CT LUNG CANCER SCREENING REASON FOR EXAM: Male, 48 years old. smoker RADIATION DOSAGE (If Supplied By Facility): CTDIvol = ( 4.02 ) mGy, DLP = ( 150.99 ) mGycm TECHNIQUE: No contrast was administered. Low dose technique was utilized (average mAS-38 and kVp 120). 1.25 mm axial source images with a slice interval of 1.25-mm were reconstructed in lung windows. 2.5 mm axial source images with a slice interval of 2.5-mm were reconstructed in lung windows. 5.0 mm axial source images with a slice interval of 5.0-mm were reconstructed in soft tissue windows. COMPARISON: None. Emphysema: Mild emphysema. No noncalcified nodule or mass. Endobronchial lesion: None Aorta: No aortic aneurysm. CORONARY ARTERIES: Coronary artery calcification is not seen. Heart: No cardiomegaly. Pulmonary artery: Normal Mediastinal nodes: Normal Other chest and abdominal findings: None CT/Low Dose CT Lung Screening IMPRESSION: Lung-RADS category 1 - Continue annual screening with LDCT in 12 months. IMPORTANT NOTES FOR USE: ACR Lung-RADS Version 1.1 Assessment Categories Release Date: 2018 Category: Coded 0-4 bases on nodule(s) with highest degree of suspicion. Negative screen is defined as categories 1 and 2; a positive screen is defined as categories 3 and 4. Category 3 and 4A nodules that are unchanged on interval CT should be coded as category 2, and individuals returned to screening in 12 months. Category 4X: Category 3 or 4 nodules with additional imaging findings that increase the suspicion of lung cancer, such as spiculation, GGN that doubles in size in 1 year, enlarged lymph notes, etc. Category Modifiers: S (significant finding unrelated to lung cancer) Electronically Signed: Manfred Allred MD at 21:32 EST ,
== END | disposition home or self-care (01) ==
LOC: CT 16:49
PROVIDERS: PCP Family Medicine; Referring Provider Nurse Practitioner Acute Care; Visit Provider Nurse Practitioner Acute Care
DX: F17.210 Nicotine dependence, cigarettes, uncomplicated (principal)
CPT/HCPCS: 71271

== ENCOUNTER → 2024-02-06 | Outpatient (CLI) | payer OTHER, SELFPAY ==
[2024-02-06 17:50] LABS: Absolute Lymphocyte Count 2.61 X10^3/uL (0.83-4.51); Absolute Neutrophil Count 5.4 X10^3/uL (2.0-7.7); Basophil# 0.11 X10^3/uL; Basophil% 1.2 % (0-1); Eosinophil# 0.25 X10^3/uL; Eosinophils% 2.7 % (0-5); Hematocrit 50.1 % (40-54); Lymphocyte # 2.61 X10^3/ul (0.83-4.51); Lymphocyte % 28.4 % (19-41); Mean Corp Hgb Conc 33.9 g/dL (32-36); Mean Corpuscular Hgb 32.3 pg (27.0-32.0); Mean Corpuscular Volume 95.2 fL (80-94); Monocyte# 0.76 X10^3/uL; Monocyte% 8.3 % (0-10); NRBC Flagged by Analyzer 0 % (0-5); Neutrophil # 5.41 X10^3/uL (2.7-7.7); Neutrophil % 58.9 % (47-70); Platelet Count 246 K/mm3 (150-450); RBC Distribution Width CV 12.3 % (11.6-14.6); RBC Distribution Width SD 43.1 fl (35.1-43.9); Red Blood Count 5.26 M/mm3 (4.6-6.2); White Blood Count 9.2 K/mm3 (4.4-11.0)
[2024-02-06 18:01] LABS: ALB/GLOB Ratio 1.2 RATIO (0.9-2.4); AST(SGOT) 14 U/L (15-37); Alanine Aminotransfer ALT/SGPT 24 U/L (16-61); Alkaline Phosphatase 58 U/L (45-117); Anion Gap 5 (5-15); BUN 13 mg/dL (7-18); BUN/Creat Ratio 17.3 RATIO (10-20); Calcium,Total 8.9 mg/dL (8.5-10.1); Chloride 109 mmol/L (98-107); Creatinine, Serum 0.75 mg/dL (0.70-1.30); EST Glomerular Filtration Rate 117 mL/min (>60); Est Glom Filt Rate - Afr Amer 141 mL/min (>60); Globulin 3.2 g/dL (2.2-4.2); Glucose 103 mg/dL (74-106); Potassium 3.8 mmol/L (3.5-5.1); Protein, Total 7.2 g/dL (6.4-8.2); Sodium Level 140 mmol/L (136-145)
== END | disposition home or self-care (01) ==
LOC: MTLAB 15:53
PROVIDERS: PCP Family Medicine; Referring Provider Psychiatry & Neurology Sleep Medicine; Visit Provider Psychiatry & Neurology Sleep Medicine
DX: Z79.899 Other long term (current) drug therapy (principal)
CPT/HCPCS: 36415; 80053; 85025

== ENCOUNTER 2024-07-24 21:01 | Inpatient (IN) | payer OTHER, SELFPAY ==
[2024-07-24] VITALS (15 sets, daily range): BP systolic 66–108; BP diastolic 38–55; PULSE 0–94; RESP 0–18; TEMP 36–36.8; O2SAT 29–98; BMI 41.0
--- NOTE | 2024-07-24 21:26 | RAD_ITS ---
EXAM: XR CHEST, 1 VIEW CLINICAL INDICATION: chest pain TECHNIQUE: 2 frontal views of the chest. COMPARISON: No relevant prior studies available. FINDINGS: LUNGS AND PLEURAL SPACES: A 9 x 5 mm ovoid nodular opacity opacity with slightly lobulated margins is noted within the left midlung, projected between the posterior left sixth and seventh ribs. Discoid atelectasis noted at both lung bases. No pneumonia, pulmonary edema, pleural effusion or pneumothorax identified. HEART: Normal heart size and pulmonary vasculature. MEDIASTINUM: Thoracic aorta is mildly elongated. BONES/JOINTS: Fixation plate and screws projected over the cervical spine. No acute fracture. SOFT TISSUES: Unremarkable. TUBES, LINES AND DEVICES: ET tube is in place, projected over the trachea with its tip positioned 5 cm above the joão. NG tube in place and extends into the stomach; the tube can be followed to the gastric body but this distal tip is not included on the current chest radiographs. RAD/Chest 1 View (Portable) IMPRESSION: Satisfactory ET tube positioning. NG tube in place, extending into the stomach. Bibasilar atelectasis. 9 mm left midlung nodule, possibly a calcified granuloma, of doubtful clinical significance given the abnormal cranial CT of this date. Comparison with prior studies or follow-up studies could be utilized to document stability. Electronically Signed: Sanchez Tomas MD at 22:57 EDT ,
[2024-07-24] MEDS: Norepinephrine 8 mg/250 mL 0.9% NS 9.4 MG CONT INF (21:29)
--- NOTE | 2024-07-24 21:30 | EKG12_ITS ---
Test Reason : CARDIAC ARREST Blood Pressure : / mmHG Vent. Rate : 079 BPM Atrial Rate : 079 BPM P-R Int : 286 ms QRS Dur : 116 ms QT Int : 452 ms P-R-T Axes : 023 039 -44 degrees QTc Int : 518 ms Sinus rhythm with 1st degree A-V block Inferior infarct , age undetermined Prolonged QT Abnormal ECG Confirmed by Judah Julian ([id number]), desk editor RJ VILLANUEVA ([id number]) on 07/26/2024 11:51:40 AM Referred By: Herman Conner Confirmed By:Judah Julian
[2024-07-24 21:34] LABS: Absolute Lymphocyte Count 5.53 X10^3/uL (0.83-4.51); Absolute Neutrophil Count 2.8 X10^3/uL (2.0-7.7); Basophil# 0.13 X10^3/uL; Basophil% 1.3 % (0-1); Eosinophil# 0.15 X10^3/uL; Eosinophils% 1.5 % (0-2); Hemoglobin 17.1 g/dL (13.0-16.5); Lymphocyte # 5.53 X10^3/ul (0.83-4.51); Lymphocyte % 56.1 % (19-29); Mean Corp Hgb Conc 29.8 g/dL (29-37); Mean Corpuscular Hgb 32.8 pg (31.0-37.0); Mean Corpuscular Volume 110.2 fL (95-115); Mean Platelet Vol. 10.9 fl (6.2-12.0); Monocyte# 0.91 X10^3/uL; Monocyte% 9.2 % (5-7); NRBC Flagged by Analyzer 1.1 % (0-5); Neutrophil # 2.75 X10^3/uL (2.7-7.7); Neutrophil % 27.9 % (32-62); POSITIVE DIFFERENTIAL YES; POSITIVE MORPHOLOGY YES; Platelet Count 234 K/mm3 (250-450); RBC Distribution Width CV 12.2 % (11.6-17.9); RBC Distribution Width SD 51.2 fl (35.1-43.9); Red Blood Count 5.21 M/mm3 (4.0-5.9); White Blood Count 9.9 K/mm3 (9-35)
--- NOTE | 2024-07-24 21:40 | CM.ED ---
Social Work: Date of referral: 07/24/2024 Reason for Referral: Code [place] Referred by: Social Work Identification. youth support worker spent time with patient's family in the waiting room to provide support and to be present during ED nurse report and ED doctor report. youth support worker got family water and made sure no one had any other needs. On-call [place] was also present and prayed with family. Suellen Morris, COMPRESSOR TECHNICIAN, RESIDENTIAL SOLAR SALES CONSULTANT
[2024-07-24] MEDS: 0.9% Normal Saline (1000mL) 1,000 ML 999 ML IV (21:44)
[2024-07-24 21:45] LABS: Differential Indicated SCAN CRITERIA MET; Hematocrit 57.4 % (40-54)
[2024-07-24] MEDS: Sodium Bicarbonate 8.4% 50 ML Syringe 50 MEQ IV ×2 (21:45)
--- NOTE | 2024-07-24 21:50 | CT_ITS ---
EXAM: CT HEAD WITHOUT INTRAVENOUS CONTRAST CLINICAL INDICATION: fall after choking episode. Coded.. Full arrest. TECHNIQUE: Multiple axial images were obtained of the head without intravenous contrast. This CT exam was performed using one or more of the following dose reduction techniques: automated exposure control, adjustment of the mA and/or kV according to patient size, and/or use of iterative reconstruction technique. RADIATION DOSE: Total DLP: 863.60 mGy-cm. COMPARISON: No relevant prior studies available. FINDINGS: BRAIN AND EXTRA-AXIAL SPACES: There is loss of the normal nelson-white matter differentiation within the cerebral and cerebellar hemispheres. Majority of the cerebral cortical sulci are effaced. The intracranial vascular structures are hyperdense due to abnormal diminished attenuation/edema of the brain parenchyma, pseudosubarachnoid hemorrhage sign. The ventricles are normal in size. There is no midline shift. The cerebellar tonsils are normally positioned. Fourth ventricle is preserved. No acute intracranial hemorrhage. BONES/JOINTS: Unremarkable. No discrete lytic or blastic abnormalities. No linear or depressed skull fracture. SINUSES: Incidental retention cysts within the right maxillary antrum. No paranasal sinus air-fluid levels. MASTOID AIR CELLS: Unremarkable. Clear. ORBITS: Visualized globes, extraocular muscles, optic nerves and retrobulbar fat appear unremarkable. NASOPHARYNX: Nasopharynx is opacified by retained secretions. CT/Brain/Head without Contrast IMPRESSION: Findings of hypoxic ischemic injury affecting the cerebral and cerebellar hemispheres, with diffuse cerebral edema and loss of the normal nelson-white matter differentiation. Electronically Signed: Sanchez Tomas MD at 22:50 EDT ,
[2024-07-24 21:54] LABS: Anion Gap 19 (5-15); BUN 18 mg/dL (7-18); BUN/Creat Ratio 15.4 RATIO (10-20); Calcium,Total 10.3 mg/dL (8.5-10.1); Chloride 106 mmol/L (98-107); Creatinine, Serum 1.17 mg/dL (0.70-1.30); EST Glomerular Filtration Rate 70 mL/min (>60); Est Glom Filt Rate - Afr Amer 85 mL/min (>60); Estimated Creatinine Clearance 111.52 ml/min; Glucose 158 mg/dL (74-106); Magnesium 2.9 mg/dL (1.6-2.6); Potassium 5.7 mmol/L (3.5-5.1); Sodium Level 143 mmol/L (136-145); Troponin-I HS (w/2H Reflex) 8 pg/mL (3.0-78.0)
[2024-07-24] MEDS: Sodium Bicarbonate 150 MEQ in Dextrose 5%-Water (1000mL Bag) 1,000 ML 100 MEQ IV (22:00)
[2024-07-24 22:15] LABS: Differential Comment SCANNED; Reactive Lymphocyte RARE
[2024-07-24 22:19] LABS: International Normalized Ratio 1.7; Prothrombin Time (Protime)PT. 19.6 SECONDS (11.7-14.9)
[2024-07-24 22:22] LABS: BNP,B-Type NATRIURETIC PEPTIDE 18.6 pg/mL (0-100)
[2024-07-24 22:27] LABS: Partial Thromboplast Time 104.5 Seconds (24.1-36.2)
[2024-07-24 22:33] LABS: Lactic Acid 21.6 mmol/L (0.4-1.9)
--- NOTE | 2024-07-24 22:40 | PCM.CONS.C ---
Assessment & Plan Assessment/Plan (1) Cardiac arrest: PLAN: V-fib arrest primarily secondary to choking incidence with respiratory failure. ROSC obtained only after prolonged CPR. Maintain hemodynamic support. Overall prognosis appears poor. (2) Choking due to foreign body: PLAN: Choked on a piece of meat. Successfully removed by EMS. (3) Shock circulatory: PLAN: See #1 and 2 above. On Levophed for hemodynamic support. HPI Consult Data Date of Consult: 07/24/24 HPI Narrative Reason for Consultation: Cardiac arrest HPI Narrative: 48-year-old gentleman with past medical history significant for hypertension, multiple sclerosis, sleep apnea and obesity. According to his , he was out at his porch barbecuing pork ribs. She then saw him coming through the doors to inside of the house. Shortly thereafter, he started grunting, holding his throat and complaining that he could not breathe and that he was choking. He fell down to the floor and started turning blue. The called the EMS and started doing CPR by herself. According to her, she did CPR for at least 15 to 20 minutes before first the childbirth and infant care teacher came in and then the EMS. As per her, the EMS did CPR at the home for another 15 to 20 minutes before he was transported to the hospital. The EMS told the ER staff that they were able to remove a large piece of meat from his throat with the help of a forceps. The patient was brought to the emergency room. He was noted to be in ventricular fibrillation. He was shocked. CPR was continued for about 10 to 12 minutes before ROSC was obtained. Currently the patient is intubated, on a ventilator. [facility] Medical History (Updated 07/24/24 @ 22:[address] Rain Marinelli MD) Hypertension Emphysema lung Sleep apnea Social History Smoking Status: Unknown if ever smoked Physical Exam Narrative Obese. Both pupils are dilated and fixed. Pulse regular rate and rhythm. Heart sounds 1 and 2. Chest moves equally with respirations. No ankle edema noted. Risk Stratification Risk Stratification Applicable: No Objective Data Vital Signs: Vital Signs Temp Pulse Resp BP Pulse Ox O2 Del Method FiO2 98.2 F 85 18 99/51 L 96 Mechanical Ventilator 100 07/24/24 21:17 07/24/24 22:30 07/24/24 22:30 07/24/24 22:30 07/24/24 22:30 07/24/24 22:30 07/24/24 21:20 Oxygen Delivery Method Mechanical Ventilator Weight: 311 lb 1.6 oz Body Mass Index (BMI) 41.0 Intake & Output: Intake and Output for Last 24 Hours 07/22/24 07/23/24 07/24/24 23:59 23:59 23:59 Intake Total 1012.34 / 1012.34 Balance 1012.34 / 1012.34 Lab / Micro Data 07/24/24 21:04 07/24/24 21:04 Labs: Laboratory Results - last 24 hr 07/24/24 21:00: Lactic Acid 21.6 H* 07/24/24 21:04: WBC 9.9, RBC 5.21, Hgb 17.1 H, Hct 57.4 H, MCV 110.2, MCH 32.8, MCHC 29.8, RDW Std Deviation 51.2 H, RDW Coeff of Maryann 12.2, Plt Count 234 L, MPV 10.9, Immature Gran % (Auto) 4.000 H, Neut % (Auto) 27.9 L, Lymph % (Auto) 56.1 H, [place] % (Auto) 9.2 H, Eos % (Auto) 1.5, Baso % (Auto) 1.3 H, Absolute Neuts (auto) 2.8, Absolute Lymphs (auto) 5.53 H, Nucleated RBC % 1.1, Differential Comment SCANNED, Reactive Lymphocytes RARE, PT Cancelled, INR Cancelled, APTT Cancelled, Sodium 143, Potassium 5.7 H, Chloride 106, Carbon Dioxide 19.0 L, Anion Gap 19 H, BUN 18, Creatinine 1.17, Estim Creat Clear Calc 111.52, Est GFR (MDRD) Af Amer 85, Est GFR (MDRD) Non-Af 70, BUN/Creatinine Ratio 15.4, Glucose 158 H, Calcium 10.3 H, Magnesium 2.9 H, Troponin I High Sens 8, B-Natriuretic Peptide 18.6, TSH 12.400 H 07/24/24 22:02: PT 19.6 H, INR 1.7, APTT 104.5 H* Rhythm Strip Rhythm Strip: Sinus Rhythm Cardiology Labs/Tests 07/24/24 21:00: Lactic Acid 21.6 H* 07/24/24 21:04: WBC 9.9, RBC 5.21, Hgb 17.1 H, Hct 57.4 H, MCV 110.2, MCH 32.8, MCHC 29.8, Plt Count 234 L, MPV 10.9, Immature Gran % (Auto) 4.000 H, Neut % (Auto) 27.9 L, Lymph % (Auto) 56.1 H, [place] % (Auto) 9.2 H, Eos % (Auto) 1.5, Baso % (Auto) 1.3 H, Absolute Neuts (auto) 2.8, Nucleated RBC % 1.1, PT Cancelled, INR Cancelled, APTT Cancelled, Sodium 143, Potassium 5.7 H, Chloride 106, Carbon Dioxide 19.0 L, Anion Gap 19 H, BUN 18, Creatinine 1.17, Est GFR (MDRD) Af Amer 85, Est GFR (MDRD) Non-Af 70, BUN/Creatinine Ratio 15.4, Glucose 158 H, Calcium 10.3 H, Magnesium 2.9 H, B-Natriuretic Peptide 18.6 07/24/24 22:02: PT 19.6 H, INR 1.7, APTT 104.5 H* Per the respiratory therapist, ABGs show a pH of 6.6. Rhythm: EKG: First post ROSC EKG showed sinus rhythm. ST elevations noted in aVR with ST depressions in 1 and aVL and V4 through V6. Present ECG shows resolution of ST depressions. ECHO: Stress Test: Cardiac Cath: PCI: CT Surgery: Holter monitor: EPS: PPM: CXR: Chest CT Scan:
--- NOTE | 2024-07-24 22:45 | CPS ---
Critical ABG values, Dr. Phillips aware. Not enough blood for re-run.
--- NOTE | 2024-07-24 22:55 | EKG12_ITS ---
Test Reason : CARDIAC ARREST Blood Pressure : / mmHG Vent. Rate : 110 BPM Atrial Rate : 105 BPM P-R Int : 000 ms QRS Dur : 110 ms QT Int : 330 ms P-R-T Axes : 000 074 057 degrees QTc Int : 446 ms Poor data quality , interprettation may be adversely affected Atrial fibrillation with rapid ventricular response with premature ventricular or aberrantly conducte d complexes Marked ST abnormality, possible lateral subendocardial injury Abnormal ECG Confirmed by Judah Julian ([id number]), material expeditor RJ VILLANUEVA ([id number]) on 07/26/2024 11:49:18 AM Referred By: Herman Conner Confirmed By:Judah Julian
[2024-07-24 23:00] LABS: Blood Gas Specimen Type ART
[2024-07-24 23:01] LABS: Mode A-C; PEEP 12; RR 14; SITE L BRACHIAL; Time Given 2137
[2024-07-24 23:02] LABS: Base Excess -27 mmol/L (-2 to +2); Bicarbonate 10.6 mmol/L (22-26); PO2 135 mmHG (75-100); SO2 90 % (95-99); Total Carbon Dioxide 14 mmol/L; pH 6.61 (7.35-7.45)
--- NOTE | 2024-07-24 23:18 | EDS_ITS ---
HPI History of Present Illness Chief Complaint: CPR Narrative Narrative: Patient is a 48-year-old male past medical history of MS, RICKY, hypertension, emphysema who presented to the Emergency Department in cardiac arrest. Patient was unable to provide history of present illness secondary to cardiac arrest therefore acute care caveat applies. According to EMS the patient was outside he came in stating that he was choking on food fell backwards and went out. According to them the started CPR immediately called 911 the correspondence school instructor showed up continued CPR until EMS arrived. EMS states that they started CPR and gave him epinephrine as well as he had a shockable rhythm which she was defibrillated. They state that they were unable to successfully pass the endotracheal tube therefore they went to a LMA. They noted that they are having difficulty with ventilating him and noted there was a big piece of meat stuck in the back of his airway which they were able to remove and start to ventilate him at that point time. [facility] Medical History Hypertension Emphysema lung Sleep apnea Social History Smoking Status: Unknown if ever smoked ROS ROS ED ROS Narrative Review of systems unobtainable from the patient secondary to cardiac arrest therefore acute care caveat applies EXAM Physical Exam Narrative Exam Narrative: General: Patient was in active cardiac arrest receiving chest compressions and being ventilated via LMA Head: Atraumatic, normocephalic Eyes: Pupils unreactive to light bilaterally Neck: Soft, supple Respiratory: Bilateral breath sounds via ventilation through LMA Neurological: Patient in active cardiac arrest Skin: Patient has blue hue to his upper body Const Vital Signs: 07/24/24 21:17 07/24/24 21:20 07/24/24 21:23 Temperature 98.2 F Temperature Source Axillary Pulse Rate 0 80 Pulse Rate [8] 94 Respiratory Rate 0 14 Respiratory Rate [8] 16 Respiratory Effort Respiratory Depth Respiratory Pattern Normal Blood Pressure Blood Pressure [8] 108/51 Blood Pressure Mean Blood Pressure Source Pulse Ox 29 91 Oxygen Delivery Method Mechanical Ventilator Mechanical Ventilator Fraction of Inspired Oxygen (FIO2) 100 07/24/24 21:31 07/24/24 21:42 07/24/24 21:44 Temperature Temperature Source Pulse Rate 78 80 Pulse Rate [8] Respiratory Rate 14 Respiratory Rate [8] Respiratory Effort Respiratory Depth Respiratory Pattern Normal Blood Pressure 66/38 L Blood Pressure [8] Blood Pressure Mean 47 Blood Pressure Source Pulse Ox 94 94 95 Oxygen Delivery Method Mechanical Ventilator Mechanical Ventilator Fraction of Inspired Oxygen (FIO2) 100 07/24/24 22:01 07/24/24 22:02 07/24/24 22:30 Temperature Temperature Source Pulse Rate 85 86 85 Pulse Rate [8] Respiratory Rate 18 18 18 Respiratory Rate [8] Respiratory Effort Respiratory Depth Respiratory Pattern Blood Pressure 92/55 L 79/46 99/51 L Blood Pressure [8] Blood Pressure Mean 67 57 67 Blood Pressure Source Pulse Ox 96 98 96 Oxygen Delivery Method Mechanical Ventilator Mechanical Ventilator Fraction of Inspired Oxygen (FIO2) 07/24/24 22:35 07/24/24 22:47 07/24/24 22:49 Temperature Temperature Source Pulse Rate 84 Pulse Rate [8] Respiratory Rate 18 Respiratory Rate [8] Respiratory Effort Mechanically Ventilated Mechanically Ventilated Respiratory Depth Normal Respiratory Pattern Normal Normal Normal Blood Pressure Blood Pressure [8] Blood Pressure Mean Blood Pressure Source Pulse Ox 96 96 Oxygen Delivery Method Mechanical Ventilator Fraction of Inspired Oxygen (FIO2) 75 07/24/24 23:00 07/24/24 23:05 Temperature Temperature Source Pulse Rate 84 83 Pulse Rate [8] Respiratory Rate 16 18 Respiratory Rate [8] Respiratory Effort Respiratory Depth Respiratory Pattern Blood Pressure 96/52 L 92/55 Blood Pressure [8] Blood Pressure Mean 66 67 Blood Pressure Source Monitor Pulse Ox 97 95 Oxygen Delivery Method Mechanical Ventilator Fraction of Inspired Oxygen (FIO2) MDM MDM MDM Narrative Medical decision making narrative: Patient is a 48-year-old male who presented to the emergency department in active cardiac arrest. Patient arrived was transferred to the bed and was time for a pulse check. Patient remained in asystole CPR was resumed and another epinephrine was given. CPR was continued and ACLS protocol was followed see CODE BLUE sheet for further details. Patient ultimately went into V. tach versus V-fib without a pulse was defibrillated with CPR resumed again. At the next pulse check the patient had achieved ROSC he was bradycardic he was given a milligram of atropine. Patient had a EKG obtained which showed an irregular rhythm however there was significant impressions in the lateral leads as well as V5 through V6 with some elevation in aVR this was at 2110. I immediately notified on-call reeling machine setup operator Dr. Garcia who was requesting get an ABG as well as a repeat EKG. Patient had repeat EKG at 2121 which was reviewed and again showed elevation in aVR with depressions in the 5 through V6 and in lead I. This was sent to him and he states that he would be and evaluate the patient. Patient had a arterial blood gas obtained which was reviewed and showed a pH of 6.61 with a pCO2 of 104. He was given 2 more amps of bicarb and a bicarb drip was ordered. I did discuss the results with the patient's family in the waiting room and gave them multiple updates Patient CBC reviewed and showed no evidence leukocytosis white blood count normal at 9.9, hemoglobin was 17.1, platelet count of 234. Patient INR was 1.7, APTT was noted be 104.5. Patient's sodium was noted be 143, potassium elevated 5.7, creatinine normal at 1.17. Patient lactic acid elevated 21.6. Patient's magnesium was 2.9, TSH of 12.40. Patient's chest x-ray reviewed and showed satisfactory ET tube positioning NG tube in place extending into the stomach basilar atelectasis. 9 mm left midlung nodule possibly calcified granuloma of doubtful clinical significance. Patient's CT head and brain showed findings suggestive of hypoxic ischemic injury affecting the cerebral and cerebellar hemispheres with diffuse cerebral edema and loss of normal nelson-white matter differentiation. I had another discussion with the family members at bedside and notified them that he has anoxic brain injury and the prognosis is very poor. They state that they want to wait till a family member returns from [place] tomorrow prior to withdrawing care. We had further discussion about his CODE STATUS and he will be a DNR CCA okay to intubate. We will continue care where we will not escalate care further they are agreeable with this. Case will be discussed with hospitalist. They do want hospice involved as well. All question concerns were answered at bedside Critical care time 65 minutes Lab Data Labs: Laboratory Results - last 24 hr 07/24/24 07/24/24 07/24/24 21:00 21:04 22:02 WBC 9.9 RBC 5.21 Hgb 17.1 H Hct 57.4 H MCV 110.2 MCH 32.8 MCHC 29.8 RDW Std Deviation 51.2 H RDW Coeff of Maryann 12.2 Plt Count 234 L MPV 10.9 Immature Gran % (Auto) 4.000 H Neut % (Auto) 27.9 L Lymph % (Auto) 56.1 H [place] % (Auto) 9.2 H Eos % (Auto) 1.5 Baso % (Auto) 1.3 H Absolute Neuts (auto) 2.8 Absolute Lymphs (auto) 5.53 H Nucleated RBC % 1.1 Differential Comment SCANNED Reactive Lymphocytes RARE PT Cancelled 19.6 H INR Cancelled 1.7 APTT Cancelled 104.5 H* Sodium 143 Potassium 5.7 H Chloride 106 Carbon Dioxide 19.0 L Anion Gap 19 H BUN 18 Creatinine 1.17 Estim Creat Clear Calc 111.52 Est GFR (MDRD) Af Amer 85 Est GFR (MDRD) Non-Af 70 BUN/Creatinine Ratio 15.4 Glucose 158 H Lactic Acid 21.6 H* Calcium 10.3 H Magnesium 2.9 H Troponin I High Sens 8 B-Natriuretic Peptide 18.6 TSH 12.400 H ABG Data ABG results: ABG 07/24/24 21:37 Specimen Type ART Sample Site L BRACHIAL pH 6.61 L* Bicarbonate Actual 10.6 L Total CO2 14 Base Excess -27 L O2 Saturation 90 L O2 % 100.0 ABG pCO2 104.0 H* ABG pO2 135 H Respiration Rate 14 Vent Mode A-C Tidal Volume 450.0 POC PEEP 12 Crit Call To/Read Back Yes Blood Gas Notified Whom ED Blood Gas Notified Time 2136 Radiography Diagnostic Testing: Clinical Impression(s) from Imaging Studies Chest X-Ray 07/24/24 21:26 IMPRESSION: Satisfactory ET tube positioning. NG tube in place, extending into the stomach. Bibasilar atelectasis. 9 mm left midlung nodule, possibly a calcified granuloma, of doubtful clinical significance given the abnormal cranial CT of this date. Comparison with prior studies or follow-up studies could be utilized to document stability. Electronically Signed: Sanchez Tomas MD at 22:57 EDT , Brain CT 07/24/24 21:50 IMPRESSION: Findings of hypoxic ischemic injury affecting the cerebral and cerebellar hemispheres, with diffuse cerebral edema and loss of the normal nelson-white matter differentiation. Electronically Signed: Sanchez Tomas MD at 22:50 EDT , Rhythm Strip Rhythm Strip: Sinus Rhythm Discharge Plan Triage Chief Complaint: CPR ED Provider: Jj Phillips Dx/Rx/DC Orders Clinical Impression: Anoxic brain injury, Cardiac arrest Primary Care Provider: Meg Mahoney Referrals: Meg Mahoney MD [Primary Care Provider] - Print Language: Belgian
--- NOTE | 2024-07-24 23:25 | HP.PCM.HOS_ITS ---
HPI - General General Date of Admission: 07/24/24 Date of Service: 07/24/24 Chief Complaint: Choking on Foreign Body with Code Blue. HPI Narrative BLAIRE WONG, is a 48 M with a past medical history of essential hypertension, morbid obesity; with BMI of 41 this admission, obstructive sleep apnea, multiple sclerosis and OA who presented to [facility] ER after he was noted to have a severe choking episode while barbecuing at home. Mr. Wong is not a reliable historian at this time to information was gathered from chart, medical staff and computer. According to the records patient began choking on food when he fell backwards and lost consciousness. His then immediately started CPR and called 911. EMS records show that he had a shockable rhythm with V-fib arrest which was treated with epinephrine and defibrillated. They were unable to pass an endotracheal tube in the field so they went to a laryngeal mask airway. They immediately noted difficulty ventilating him as there was a big piece of meat stuck in the back of his airway which they were able to remove and then they were able to ventilate him without difficulty. Unfortunately, the patient has suffered an anoxic brain injury with a pH of 6.61 and a pCO2 of 104 mmHg with hyperkalemia of 5.7 mmol/L present on admission. An endotracheal tube and nasogastric tube were placed in the ER and his head CT confirmed hypoxic ischemic injury affecting the cerebral and cerebellar hemispheres with diffuse cerebral edema and loss of normal nelson-white matter differentiation. The ER physician explained to the family members at the bedside that the patient's prognosis is very poor. The family has requested the patient be kept alive until tomorrow when his father can come from [place] was catching a flight tonight prior to withdrawing care. They are also amenable to hospice consultation which has been ordered and is pending at this time. He was then admitted to the ICU for ongoing care for stay that is expected to extend beyond 2 midnights. [facility] Medical History Hypertension Emphysema lung Sleep apnea Allergy/AdvReac Type Severity Reaction Status Date / Time No Known Allergies Allergy Verified 07/25/24 03:47 Social History Smoking Status: Unknown if ever smoked ROS ROS Narrative Review of systems without possible in this patient with anoxic brain injury. Vital Signs Vital Signs Vital Signs: 07/24/24 21:17 07/24/24 21:20 07/24/24 21:23 Temperature 98.2 F Temperature Source Axillary Pulse Rate 0 80 Pulse Rate [8] 94 Respiratory Rate 0 14 Respiratory Rate [8] 16 Respiratory Effort Respiratory Depth Respiratory Pattern Normal Blood Pressure Blood Pressure [8] 108/51 Blood Pressure Mean Blood Pressure Source Pulse Ox 29 91 Oxygen Delivery Method Mechanical Ventilator Mechanical Ventilator Fraction of Inspired Oxygen (FIO2) 100 07/24/24 21:31 07/24/24 21:42 07/24/24 21:44 Temperature Temperature Source Pulse Rate 78 80 Pulse Rate [8] Respiratory Rate 14 Respiratory Rate [8] Respiratory Effort Respiratory Depth Respiratory Pattern Normal Blood Pressure 66/38 L Blood Pressure [8] Blood Pressure Mean 47 Blood Pressure Source Pulse Ox 94 94 95 Oxygen Delivery Method Mechanical Ventilator Mechanical Ventilator Fraction of Inspired Oxygen (FIO2) 100 07/24/24 22:01 07/24/24 22:02 07/24/24 22:30 Temperature Temperature Source Pulse Rate 85 86 85 Pulse Rate [8] Respiratory Rate 18 18 18 Respiratory Rate [8] Respiratory Effort Respiratory Depth Respiratory Pattern Blood Pressure 92/55 L 79/46 99/51 L Blood Pressure [8] Blood Pressure Mean 67 57 67 Blood Pressure Source Pulse Ox 96 98 96 Oxygen Delivery Method Mechanical Ventilator Mechanical Ventilator Fraction of Inspired Oxygen (FIO2) 07/24/24 22:35 07/24/24 22:47 07/24/24 22:49 Temperature Temperature Source Pulse Rate 84 Pulse Rate [8] Respiratory Rate 18 Respiratory Rate [8] Respiratory Effort Mechanically Ventilated Mechanically Ventilated Respiratory Depth Normal Respiratory Pattern Normal Normal Normal Blood Pressure Blood Pressure [8] Blood Pressure Mean Blood Pressure Source Pulse Ox 96 96 Oxygen Delivery Method Mechanical Ventilator Fraction of Inspired Oxygen (FIO2) 75 07/24/24 23:00 07/24/24 23:05 07/24/24 23:21 Temperature 96.8 F L Temperature Source Pulse Rate 84 83 82 Pulse Rate [8] Respiratory Rate 16 18 16 Respiratory Rate [8] Respiratory Effort Respiratory Depth Respiratory Pattern Blood Pressure 96/52 L 92/55 105/55 L Blood Pressure [8] Blood Pressure Mean 66 67 71 Blood Pressure Source Monitor Pulse Ox 97 95 96 Oxygen Delivery Method Mechanical Ventilator Fraction of Inspired Oxygen (FIO2) Weight Weight: 311 lb 1.6 oz Body Mass Index (BMI) 41.0 Physical Exam Const no apparent distress Constitutional Narrative: Morbidly obese patient unresponsive on ventilator. HEENT normocephalic and head/scalp atraumatic Eyes conjunctivae normal Neck no lymphadenopathy and supple Resp normal respiratory effort, no retractions, no use of accessory muscles and clear to auscultation bilaterally Cardio regular rate and regular rhythm GI normal to inspection, nondistended, normoactive bowel sounds, soft to palpation, non-tender and non-distended GI Narrative: Morbidly obese. Extremity normal to inspection, full ROM and no clubbing, cyanosis or edema Skin Skin Narrative: Patient has no evidence of rash, abscess or jaundice. Neuro Neuro Narrative: Patient is unresponsive with anoxic injury on ventilator. Results Medical Records Data Attestation: I reviewed the patient's medical records Lab / Micro Data Attestation: I reviewed the patient's lab results. 07/25/24 05:25 07/25/24 05:25 Labs: Laboratory Results - last 24 hr 07/24/24 21:00: Lactic Acid 21.6 H* 07/24/24 21:04: WBC 9.9, RBC 5.21, Hgb 17.1 H, Hct 57.4 H, MCV 110.2, MCH 32.8, MCHC 29.8, RDW Std Deviation 51.2 H, RDW Coeff of Maryann 12.2, Plt Count 234 L, MPV 10.9, Immature Gran % (Auto) 4.000 H, Neut % (Auto) 27.9 L, Lymph % (Auto) 56.1 H, [place] % (Auto) 9.2 H, Eos % (Auto) 1.5, Baso % (Auto) 1.3 H, Absolute Neuts (auto) 2.8, Absolute Lymphs (auto) 5.53 H, Nucleated RBC % 1.1, Differential Comment SCANNED, Reactive Lymphocytes RARE, PT Cancelled, INR Cancelled, APTT Cancelled, Sodium 143, Potassium 5.7 H, Chloride 106, Carbon Dioxide 19.0 L, A nion Gap 19 H, BUN 18, Creatinine 1.17, Estim Creat Clear Calc 111.52, Est GFR (MDRD) Af Amer 85, Est GFR (MDRD) Non-Af 70, BUN/Creatinine Ratio 15.4, Glucose 158 H, Calcium 10.3 H, Magnesium 2.9 H, Troponin I High Sens 8, B-Natriuretic Peptide 18.6, TSH 12.400 H 07/24/24 22:02: PT 19.6 H, INR 1.7, APTT 104.5 H* ABG Data ABG results: ABG 07/24/24 21:37 Specimen Type ART Sample Site L BRACHIAL pH 6.61 L* Bicarbonate Actual 10.6 L Total CO2 14 Base Excess -27 L O2 Saturation 90 L O2 % 100.0 ABG pCO2 104.0 H* ABG pO2 135 H Respiration Rate 14 Vent Mode A-C Tidal Volume 450.0 POC PEEP 12 Crit Call To/Read Back Yes Blood Gas Notified Whom ED MD Blood Gas Notified Time 2136 Rhythm Strip Rhythm Strip: Sinus Rhythm Imaging Radiology Impression Chest X-Ray 07/24/24 21:26 IMPRESSION: Satisfactory ET tube positioning. NG tube in place, extending into the stomach. Bibasilar atelectasis. 9 mm left midlung nodule, possibly a calcified granuloma, of doubtful clinical significance given the abnormal cranial CT of this date. Comparison with prior studies or follow-up studies could be utilized to document stability. Electronically Signed: Sanchez Tomas MD at 22:57 EDT , Brain CT 07/24/24 21:50 IMPRESSION: Findings of hypoxic ischemic injury affecting the cerebral and cerebellar hemispheres, with diffuse cerebral edema and loss of the normal nelson-white matter differentiation. Electronically Signed: Sanchez Tomas MD at 22:50 EDT , Assessment & Plan Assessment/Plan (1) Anoxic brain injury: (2) Choking due to foreign body: QUALIFIERS: Encounter type: initial encounter Qualified Code(s): T17.900A - Unspecified foreign body in respiratory tract, part unspecified causing asphyxiation, initial encounter (3) Cardiac arrest: (4) Shock circulatory: (5) Morbid obesity with BMI of 40.0-44.9, adult: PLAN: Plan 1. Anoxic brain injury with a pH of 6.61 and a pCO2 of 104 mmHg with hyperkalemia of 5.7 mmol/L present on admission - Admit to ICU. Continue ventilator support and try to keep patient alive until his father can come from [place] to visit him one last time. We will also continue sodium bicarbonate drip till further notice. Palliative care has been consulted disease patient on rounds in the a.m. with help appreciated in advance. [facility] team also consulted at family request. 2. Severe choking episode with foreign body obstructing airway resulting in CODE BLUE precipitating #1 - Noted. 3. Morbid obesity; with BMI of 41 this admission plus RICKY - Noted. 4. Essential hypertension - Give hydralazine IV for systolic blood pressure greater than 160 mmHg. 5. History of multiple sclerosis - Noted. 6. OA - Noted. 7. DVT prophylaxis - Lovenox 40 mg SQ twice daily. Total time: Approximately 55 minutes. Charges/Coding Visit Charges Inpatient E&M: 59898 Init Hosp L2
[2024-07-24 23:32] LABS: Reflex Troponin-HS? (from REC) Y
--- NOTE | 2024-07-24 23:52 | ED.RN ---
Report called to Sara JONES in ICU, questions/concerns answered
[2024-07-25] VITALS (50 sets, daily range): BP systolic 0–125; BP diastolic 0–109; PULSE 0–116; RESP 18; TEMP 36.2–36.4; O2SAT 0–97; BMI 38.2
[2024-07-25 00:17] LABS: Troponin-I HS 210 pg/mL (3.0-78.0)
[2024-07-25 01:13] LABS: Base Excess -11 mmol/L (-2 to +2); Bicarbonate 17.8 mmol/L (22-26); Blood Gas Specimen Type ART; Mode AC; O2 Delivery Device Adult Vent; PEEP 12; PO2 137 mmHG (75-100); RR 18; SITE L Brach; SO2 98 % (95-99); Total Carbon Dioxide 19 mmol/L; pCO2 46.9 mmHg (35-45); pH 7.19 (7.35-7.45)
[2024-07-25 01:40] LABS: Reflex Lactate? Y
[2024-07-25] MEDS: Vasopressin 20 UNITS in 0.9% Normal Saline (50mL Bag) 24 ML 3 UNITS CONT INF (02:05)
[2024-07-25] MEDS: Norepinephrine 8 mg/250 mL 0.9% NS 56.3 MG CONT INF (02:45)
[2024-07-25] MEDS: Epinephrine (1 mg/ml) 1 MG in 0.9% Normal Saline (250mL Bag) 250 ML 15.1 MG CONT INF (02:51)
[2024-07-25] MEDS: Phenylephrine 10 MG in 0.9% Normal Saline (250mL Bag) 249 ML 15 MG CONT INF (05:16)
[2024-07-25 05:34] LABS: Absolute Lymphocyte Count 4.72 X10^3/uL (0.83-4.51); Absolute Neutrophil Count 26.7 X10^3/uL (2.0-7.7); Basophil# 0.16 X10^3/uL; Basophil% 0.5 % (0-1); Eosinophils% 0.3 % (0-5); Hematocrit 52.4 % (40-54); Hemoglobin 16.8 g/dL (13.0-16.5); Lymphocyte # 4.72 X10^3/ul (0.83-4.51); Lymphocyte % 13.7 % (19-41); Mean Corp Hgb Conc 32.1 g/dL (32-36); Mean Corpuscular Hgb 33.4 pg (27.0-32.0); Mean Corpuscular Volume 104.2 fL (80-94); Mean Platelet Vol. 10.2 fl (6.2-12.0); Monocyte# 1.63 X10^3/uL; Monocyte% 4.7 % (0-10); NRBC Flagged by Analyzer 0.6 % (0-5); Neutrophil # 26.65 X10^3/uL (2.7-7.7); Neutrophil % 77.3 % (47-70); POSITIVE COUNT YES; POSITIVE DIFFERENTIAL YES; POSITIVE MORPHOLOGY YES; Platelet Count 171 K/mm3 (150-450); RBC Distribution Width CV 12.6 % (11.6-14.6); RBC Distribution Width SD 48.7 fl (35.1-43.9); Red Blood Count 5.03 M/mm3 (4.6-6.2)
[2024-07-25 05:36] LABS: White Blood Count 34.5 K/mm3 (4.4-11.0)
[2024-07-25 05:37] LABS: Differential Indicated SCAN CRITERIA MET
[2024-07-25 06:09] LABS: ALB/GLOB Ratio 1.1 RATIO (0.9-2.4); AST(SGOT) 2456 U/L (15-37); Alanine Aminotransfer ALT/SGPT 2700 U/L (16-61); Albumin, Serum 3.1 g/dL (3.2-5.0); Alkaline Phosphatase 225 U/L (45-117); Anion Gap 14 (5-15); BUN 29 mg/dL (7-18); BUN/Creat Ratio 11.9 RATIO (10-20); Calcium,Total 7.4 mg/dL (8.5-10.1); Chloride 102 mmol/L (98-107); Creatinine, Serum 2.44 mg/dL (0.70-1.30); EST Glomerular Filtration Rate 30 mL/min (>60); Est Glom Filt Rate - Afr Amer 36 mL/min (>60); Estimated Creatinine Clearance 50.66 ml/min; Globulin 2.9 g/dL (2.2-4.2); Glucose 342 mg/dL (74-106); Sodium Level 140 mmol/L (136-145)
[2024-07-25 06:12] LABS: Lactic Acid 9.5 mmol/L (0.4-1.9)
[2024-07-25 06:19] LABS: International Normalized Ratio 3.6; Prothrombin Time (Protime)PT. 35.7 SECONDS (11.7-14.9)
[2024-07-25 06:20] LABS: Partial Thromboplast Time 80.9 Seconds (24.1-36.2)
[2024-07-25 06:41] LABS: Differential Comment SCANNED
[2024-07-25] MEDS: Norepinephrine 8 mg/250 mL 0.9% NS 93.8 MG CONT INF (07:18)
[2024-07-25] MEDS: Phenylephrine 10 MG in 0.9% Normal Saline (250mL Bag) 249 ML 270 MG CONT INF ×2 (07:18→07:50)
--- NOTE | 2024-07-25 07:27 | PCM.OP.PRO ---
Procedure Report Date of Procedure: 07/25/24 Procedure: Art line Indication: Organ [place] Time out: Performed Oli's test performed on the left hand and adequate ulnar arterial flow was noted. The left wrist was cleansed with chlorhexidine prep and then draped with sterile cloth. Proceduralist hands were washed and sterile gloves were donned. Utilizing sterile technique the left radial artery was visualized with ultrasound. It was then cannulated with a radial art line kit and adequate flow was obtained with ease of advancement of the catheter. The catheter was then sutured in place. Sterile dressing was placed and excellent waveform was noted. Procedures Hospitalists Procedures: [id number] Insertion Catheter Artery
[2024-07-25] MEDS: Sodium Bicarbonate 8.4% 50 ML Syringe 100 MEQ IV (07:50)
[2024-07-25] MEDS: Calcium Chloride 1 GM/10 ML Syringe IVP (07:52)
[2024-07-25] MEDS: Phenylephrine 40 mg/250 mL 0.9% NS 67.5 MG CONT INF (09:00)
[2024-07-25] MEDS: Sodium Bicarbonate 150 MEQ in Dextrose 5%-Water (1000mL Bag) 1,000 ML 100 MEQ IV (09:03)
[2024-07-25] MEDS: EPINEPHRINE CONT INF (09:26)
[2024-07-25] MEDS: NS 0.9% CONT INF (09:26)
[2024-07-25] MEDS: Norepinephrine 16 mg/250 mL 0.9% NS 46.9 MG CONT INF (09:46)
--- NOTE | 2024-07-25 11:04 | CPS ---
RT extubated patient at 1055 per RN Val, pt has .
--- NOTE | 2024-07-25 12:31 | PCM.DEATH ---
Preliminary Cause of Preliminary Cause of Preliminary Cause of : Aspiration. Date of Admission: 07/24/24 Date of : 07/25/24 Principle Diagnosis Cardiac arrest post aspiration. Problem List: Active and Suspected Problems (Updated 07/25/24 @ 01:[address] Herman Conner, DO) Morbid obesity with BMI of 40.0-44.9, adult (Acute) Cardiac arrest (Acute) Anoxic brain injury (Acute) Shock circulatory (Acute) Choking due to foreign body (Acute) Cardiac arrest (Acute) Hospital Course Patient was at home patient was choking on food fell backwards lost consciousness. started CPR and called 911. EMS arrived and patient was noted to have a shockable rhythm with V-fib arrest and was treated with epinephrine and defibrillated. EMS attempted endotracheal intubation but went with a laryngeal mask airway. Patient was subsequently intubated. Patient was noted to have a large piece of meat stuck in the back of his airway which was extracted and were able to ventilate him. CPR was continued in the emergency room and patient did have ROSC while in the ED. Blood gas showed pH of 6.61, pCO2 of 104 and pO2 of 135. Subsequent ABG showed pH of 7.18, pCO2 of 46.9 and pO2 of 137. Head CT showed findings of hypoxic ischemic injury affecting the cerebral and cerebellar hemispheres. Patient was subsequently brought to the emergency room and his condition continued to deteriorate where he was requiring 4 pressors that were maxed out. Despite the large amounts of pressors that he was receiving, he was hypotensive. [facility] was involved but patient was far too sick for them to do any successful organ harvesting and the patient on July 25, [address] Mahoney was notified and stated that she would sign the certificate. Prior to his , patient was evaluated in the emergency room while he was hypotensive, requiring pressors and he was intubated and unresponsive. Visit Charges Inpatient E&M: 08416 Disch Hosp
[2024-07-26 13:40] LABS: Pathologist Review Reviewed
== END 2024-07-25 10:11 | DRG 297 ==
LOC: ED 23:28 → ICU 07-25 00:03
PROVIDERS: Admitting Provider Internal Medicine; Emergency Provider Emergency Medicine; PCP Family Medicine; Referring Provider Internal Medicine
DX: I46.9 Cardiac arrest, cause unspecified (principal); G93.1 Anoxic brain damage, not elsewhere classified; R57.9 Shock, unspecified; T17.820A Food in other parts of respiratory tract causing asphyxiation, initial encounter; Z68.41 Body mass index [BMI] 40.0-44.9, adult; G35 Multiple sclerosis; I10 Essential (primary) hypertension; E87.5 Hyperkalemia; E66.01 Morbid (severe) obesity due to excess calories; W44.F3XA Food entering into or through a natural orifice, initial encounter
CPT/HCPCS: 31500; 31720; 36591; 36600; 51702; 70450; 71045; 80048; 80053; 82803; 83605; 83735; 83880; 84443; 84484; 85025; 85610; 85730; 86850; 86900; 86901; 87635; 92950; 93005; 94002; 94003; 99285; J7030; J7040; J7050; J3490